=== PATIENT | male | born 1985 | race Caucasian/White ===

== ENCOUNTER 2017-09-10 07:54 | Inpatient (IN) | payer MEDICAID, OTHER ==
[~2017-09-10] VITALS: Ht 180.3 cm; Wt 83.0 kg
[~2017-09-10 07:54] MED LIST: NO HOME MEDS
[2017-09-10] MEDS ORDERED: normal saline 1000ML IV soln IVB ONE (08:30)
[2017-09-10] MEDS ORDERED: normal saline 1000ML IV soln IV ONE (08:40)
[2017-09-10 09:05] LABS: BASOPHILS # (AUTO) 0.1 X10'3 (0-0.2); BASOPHILS % (AUTO) 0.6 % (0-1); EOSINOPHILS # (AUTO) 0.2 X10'3 (0-0.9); EOSINOPHILS % (AUTO) 2.3 % (0-6); HEMATOCRIT 41.1 % (42.0-52.0); HEMOGLOBIN 13.7 g/dl (14.0-17.9); LYMPHOCYTES # (AUTO) 1.9 X10'3 (1.1-4.8); LYMPHOCYTES % (AUTO) 19.1 % (21-51); MEAN CORPUSCULAR HEMOGLOBIN 25.9 PG (27.0-31.0); MEAN CORPUSCULAR HGB CONC 33.4 % (33.0-36.5); MEAN CORPUSCULAR VOLUME 77.4 FL (78-98); MEAN PLATELET VOLUME 7.1 FL (7.4-10.4); MONOCYTES # (AUTO) 0.6 X10'3 (0-0.9); MONOCYTES % (AUTO) 5.7 % (2-12); NEUTROPHILS # (AUTO) 7.1 X10'3 (1.8-7.7); NEUTROPHILS % (AUTO) 72.3 % (42-75); PLATELET COUNT 468 X10'3 (140-440); RED BLOOD COUNT 5.31 X10'6 (4.70-6.10); RED CELL DISTRIBUTION WIDTH 15.8 % (11.5-14.5); WHITE BLOOD COUNT 9.9 X10'3 (4.5-11.0)
[2017-09-10 09:19] LABS: ALANINE AMINOTRANSFERASE 64 U/L (12-78); ALBUMIN 3.5 G/DL (3.4-5.0); ALBUMIN/GLOBULIN RATIO 0.8 (1.1-1.5); ALKALINE PHOSPHATASE 79 IU/L (46-116); ANION GAP 8 (8-16); ASPARTATE AMINO TRANSFERASE 42 U/L (10-37); BILIRUBIN,TOTAL 0.5 MG/DL (0.1-1.0); BLOOD UREA NITROGEN 8 MG/DL (7-18); BUN/CREATININE RATIO 10.7 (5.4-32.0); CALCIUM 9.1 MG/DL (8.5-10.1); CHLORIDE 102 MMOL/L (99-107); CREATININE 0.75 MG/DL (0.60-1.10); GLUCOSE 93 MG/DL (70-104); POTASSIUM 4.2 MMOL/L (3.5-5.1); SODIUM 140 MMOL/L (135-145); TOTAL CARBON DIOXIDE 29.8 MMOL/L (24-32); TOTAL PROTEIN 7.7 G/DL (6.4-8.2); eGFR > 90 ML/MIN
[2017-09-10] MEDS ORDERED: CefTRIAXone 2gm/D5W 50ml 50 ML IV ONE (09:45)
[2017-09-10] MEDS ORDERED: vancomycin/NS 1 GM ADD-VANTAGE 250 ML IV ONE (09:45)
[2017-09-10] MEDS ORDERED: TETanus/Pertussis (Acell)/Diphther VAC/PF (Tdap-Adult) 0.5ml syringe IM ONE (11:15)
[2017-09-10] MEDS ORDERED: metoclopramide 5 mg/ml inj IV PRN (12:05)
[2017-09-10] MEDS ORDERED: morphine 4 MG/ML inj SYRINge IV PRN ×2 (12:05)
[2017-09-10] MEDS ORDERED: HYDROcodone/acetaminophen 10/325mg tab PO PRN (12:05)
[2017-09-10] MEDS ORDERED: mag hydrox/Alum hydrox/simeth 30ml oral suspension PO PRN (12:05)
[2017-09-10] MEDS ORDERED: acetaminophen 325mg tablet PO PRN ×2 (12:05)
[2017-09-10] MEDS ORDERED: pantoprazole 40 MG vial IV SCH (12:05)
[2017-09-10] MEDS ORDERED: ondansetron/PF 4mg/2ml inj IV PRN (12:05)
[2017-09-10] MEDS ORDERED: diphenhydrAMINE 50 mg/ml inj IV PRN (12:05)
[2017-09-10] MEDS ORDERED: HYDROmorphone inj. 0.5 MG/0.5 ML DISP.SYRIN IV PRN ×2 (12:05)
[2017-09-10] MEDS ORDERED: diphenhydrAMINE 25mg capsule PO PRN (12:05)
[2017-09-10] MEDS ORDERED: magnesium hydroxide 30ml (MOM) UD suspension PO PRN (12:05)
[2017-09-10] MEDS ORDERED: HYDROcodone/acetaminophen 5mg/325mg tablet PO PRN (12:05)
[2017-09-10 12:32] LABS: PARTIAL THROMBOPLASTIN TIME 33 SECONDS (22-32); PROTHROMBIN TIME 10.2 SECONDS (9.0-12.0)
[2017-09-10 13:01] LABS: MAGNESIUM 2.1 MG/DL (1.5-2.4)
[2017-09-10] MEDS: normal saline 1000ml 1,000 ML IV SCH (13:47)
[2017-09-10 16:46] LABS: CLARITY,URINE CLEAR (Clear); COLOR,URINE YELLOW (Yellow); GLUCOSE, URINE NEGATIVE (Neg); KETONES,URINE NEGATIVE (Neg); LEUKOCYTE ESTERASE ,URINE NEGATIVE (Neg); NITRITES, URINE NEGATIVE (Neg); OCCULT BLOOD,URINE NEGATIVE (Neg); PROTEIN,URINE NEGATIVE (Neg); UROBILINOGEN,URINE 0.2 E.U/dL (0.2-1.0)
[2017-09-10 16:47] LABS: UA COLLECTION TYPE CLN CATCH MIDSTREAM
[2017-09-10 16:53] LABS: URINE AMPHETAMINE SCREEN POSITIVE (Neg); URINE BARBITUATE SCREEN NEGATIVE (Neg); URINE BENZODIAZEPINES SCREEN NEGATIVE (Neg); URINE CANNABINOID SCREEN POSITIVE (Neg); URINE COCAINE SCREEN NEGATIVE (Neg); URINE METHADONE SCREEN NEGATIVE (Neg); URINE OPIATE SCREEN POSITIVE (Neg); URINE PHENCYCLIDINE SCREEN NEGATIVE (Neg)
[2017-09-10] MEDS: vancomycin inj 1,250 MG in normal saline 250ml IV soln 250 ML IV SCH (19:38)
[2017-09-10] MEDS: lactobacillus rhamnosus 10,000 MMU CELLS/CAPSULE PO SCH (19:39)
[2017-09-10 20:00] VITALS: BP 128/78
[2017-09-10] MEDS: docusate sod 100mg capsule PO SCH (20:00)
[2017-09-10] MEDS ORDERED: temazepam 15mg capsule PO PRN (21:00)
[2017-09-10] MEDS: piperacillin/tazo 4.5gm/100ml 100 ML IV SCH (22:32)
[2017-09-11] VITALS: BP 104/54
[2017-09-11] MEDS: normal saline 1000ml 1,000 ML IV SCH ×3 (00:43→17:53)
[2017-09-11] MEDS: vancomycin inj 1,250 MG in normal saline 250ml IV soln 250 ML IV SCH ×2 (02:56→11:10)
[2017-09-11 05:35] LABS: BASOPHILS # (AUTO) 0.1 X10'3 (0-0.2); EOSINOPHILS # (AUTO) 0.4 X10'3 (0-0.9); EOSINOPHILS % (AUTO) 5.3 % (0-6); HEMOGLOBIN 12.2 g/dl (14.0-17.9); LYMPHOCYTES # (AUTO) 2.8 X10'3 (1.1-4.8); LYMPHOCYTES % (AUTO) 33.5 % (21-51); MEAN CORPUSCULAR HEMOGLOBIN 25.6 PG (27.0-31.0); MEAN CORPUSCULAR VOLUME 77.6 FL (78-98); MEAN PLATELET VOLUME 7.6 FL (7.4-10.4); MONOCYTES # (AUTO) 0.6 X10'3 (0-0.9); MONOCYTES % (AUTO) 7.1 % (2-12); NEUTROPHILS # (AUTO) 4.4 X10'3 (1.8-7.7); NEUTROPHILS % (AUTO) 53.1 % (42-75); PLATELET COUNT 397 X10'3 (140-440); RED BLOOD COUNT 4.77 X10'6 (4.70-6.10); RED CELL DISTRIBUTION WIDTH 15.6 % (11.5-14.5); WHITE BLOOD COUNT 8.3 X10'3 (4.5-11.0)
[2017-09-11 05:41] LABS: ALANINE AMINOTRANSFERASE 49 U/L (12-78); ALBUMIN 2.7 G/DL (3.4-5.0); ALBUMIN/GLOBULIN RATIO 0.8 (1.1-1.5); ALKALINE PHOSPHATASE 65 IU/L (46-116); ANION GAP 8 (8-16); ASPARTATE AMINO TRANSFERASE 27 U/L (10-37); BILIRUBIN,TOTAL 0.3 MG/DL (0.1-1.0); BLOOD UREA NITROGEN 7 MG/DL (7-18); BUN/CREATININE RATIO 10.3 (5.4-32.0); CALCIUM 8.6 MG/DL (8.5-10.1); CHLORIDE 108 MMOL/L (99-107); CREATININE 0.68 MG/DL (0.60-1.10); GLUCOSE 99 MG/DL (70-104); SODIUM 144 MMOL/L (135-145); TOTAL CARBON DIOXIDE 27.6 MMOL/L (24-32); TOTAL PROTEIN 6.3 G/DL (6.4-8.2); eGFR > 90 ML/MIN
[2017-09-11 07:00] VITALS: BP 116/73
[2017-09-11] MEDS ORDERED: vancomycin/NS 1 GM ADD-VANTAGE 250 ML IV SCH (08:00)
[2017-09-11] MEDS: pantoprazole 40mg Tablet.DR PO SCH (08:04)
[2017-09-11] MEDS: piperacillin/tazo 4.5gm/100ml 100 ML IV SCH (08:04)
[2017-09-11] MEDS: docusate sod 100mg capsule PO SCH ×2 (08:04→20:00)
[2017-09-11] MEDS: lactobacillus rhamnosus 10,000 MMU CELLS/CAPSULE PO SCH ×2 (08:04→20:59)
[2017-09-11 11:33] VITALS: BP 121/62
[2017-09-11 12:18] VITALS: BP 122/74
[2017-09-11] MEDS: ibuprofen tablet 400 MG TABLET PO SCH (18:00)
[2017-09-11] MEDS ORDERED: VANCOMYCIN LEVEL IV NR (18:30)
[2017-09-11 20:00] VITALS: BP 125/63
[2017-09-11] MEDS: heparin, porcine 5000 units/ml vial SQ SCH (20:00)
[2017-09-11] MEDS: clindamycin 600mg/D5W 50ml 50 ML IV SCH (21:00)
[2017-09-11] MEDS: levoFLOXACIN-Levaquin 500mg/D5 100 ML IV SCH (21:54)
[2017-09-12] VITALS: BP 124/72
[2017-09-12] MEDS: clindamycin 600mg/D5W 50ml 50 ML IV SCH ×2 (01:44→07:43)
[2017-09-12 05:35] LABS: ALANINE AMINOTRANSFERASE 44 U/L (12-78); ALBUMIN 2.7 G/DL (3.4-5.0); ALBUMIN/GLOBULIN RATIO 0.8 (1.1-1.5); ALKALINE PHOSPHATASE 61 IU/L (46-116); ANION GAP 8 (8-16); ASPARTATE AMINO TRANSFERASE 24 U/L (10-37); BILIRUBIN,TOTAL 0.3 MG/DL (0.1-1.0); BLOOD UREA NITROGEN 8 MG/DL (7-18); BUN/CREATININE RATIO 11.6 (5.4-32.0); CALCIUM 8.5 MG/DL (8.5-10.1); CHLORIDE 108 MMOL/L (99-107); CREATININE 0.69 MG/DL (0.60-1.10); GLUCOSE 95 MG/DL (70-104); POTASSIUM 3.9 MMOL/L (3.5-5.1); SODIUM 145 MMOL/L (135-145); TOTAL CARBON DIOXIDE 28.8 MMOL/L (24-32); TOTAL PROTEIN 6.3 G/DL (6.4-8.2); eGFR > 90 ML/MIN
[2017-09-12 05:41] LABS: BASOPHILS % (AUTO) 0.8 % (0-1); EOSINOPHILS # (AUTO) 0.4 X10'3 (0-0.9); EOSINOPHILS % (AUTO) 6.5 % (0-6); HEMATOCRIT 37.2 % (42.0-52.0); HEMOGLOBIN 12.3 g/dl (14.0-17.9); LYMPHOCYTES # (AUTO) 2.5 X10'3 (1.1-4.8); LYMPHOCYTES % (AUTO) 46.9 % (21-51); MEAN CORPUSCULAR HEMOGLOBIN 25.6 PG (27.0-31.0); MEAN CORPUSCULAR VOLUME 77.4 FL (78-98); MEAN PLATELET VOLUME 7.5 FL (7.4-10.4); MONOCYTES # (AUTO) 0.4 X10'3 (0-0.9); MONOCYTES % (AUTO) 6.7 % (2-12); NEUTROPHILS # (AUTO) 2.1 X10'3 (1.8-7.7); NEUTROPHILS % (AUTO) 39.1 % (42-75); PLATELET COUNT 391 X10'3 (140-440); RED CELL DISTRIBUTION WIDTH 15.7 % (11.5-14.5); WHITE BLOOD COUNT 5.4 X10'3 (4.5-11.0)
[2017-09-12] MEDS: pantoprazole 40mg Tablet.DR PO SCH (07:38)
[2017-09-12] MEDS: ibuprofen tablet 400 MG TABLET PO SCH (07:38)
[2017-09-12] MEDS: lactobacillus rhamnosus 10,000 MMU CELLS/CAPSULE PO SCH (07:38)
[2017-09-12] MEDS: docusate sod 100mg capsule PO SCH (07:38)
[2017-09-12] MEDS: heparin, porcine 5000 units/ml vial SQ SCH (07:39)
[2017-09-12 08:00] VITALS: BP 114/78
[2017-09-12] MEDS ORDERED: Potassium Cl inj 10 MEQ in normal saline 1000ml 1,000 ML IV SCH (08:00)
[2017-09-12] MEDS: levoFLOXACIN-Levaquin 500mg/D5 100 ML IV SCH (08:34)
[2017-09-12] MEDS ORDERED: METR500T4 PO (10:46)
[2017-09-12] MEDS ORDERED: LEVO500T2 PO (10:46)
[2017-09-12] MEDS ORDERED: FAMO-128 PO (10:46)
[2017-09-12] MEDS ORDERED: IBUP-1984 PO (10:46)
== END 2017-09-12 11:55 | disposition home or self-care (01) | DRG 383 ==
LOC: ER 07:54 → ED HOLD 12:04 → SUR 3N 17:06
PROVIDERS: ADMIT Family Medicine; ATTEND Internal Medicine
DX: L03.115 Cellulitis of right lower limb (principal); F11.90 Opioid use, unspecified, uncomplicated; L02.415 Cutaneous abscess of right lower limb; L30.8 Other specified dermatitis; F19.10 Other psychoactive substance abuse, uncomplicated; Z88.2 Allergy status to sulfonamides; Z79.899 Other long term (current) drug therapy; Z71.51 Drug abuse counseling and surveillance of drug abuser
CPT/HCPCS: 36415; 73700; 80053; 80202; 80305; 81003; 83605; 83735; 83880; 85025; 85610; 85651; 85730; 87040; 87070; 90715; 96365; 99285; A6255; C9113; J0696; J1644; J1956; J2543; J3370; J3480; J3490; J7030

== ENCOUNTER 2020-04-26 20:43 | Emergency (ER) | payer MEDICAID, OTHER ==
[~2020-04-26] VITALS: Ht 180.3 cm; Wt 99.0 kg
[~2020-04-26 20:43] MED LIST changes: +FAMO-128 PO; +IBUP-1984 PO; -NO HOME MEDS
[2020-04-26 20:48] VITALS: BP 163/112
[2020-04-26] MEDS ORDERED: ampicillin/sulbac 3gm/NS 100ml 100 ML IV ONE (21:25)
[2020-04-26] MEDS ORDERED: LIDOcaine 1% w/epiNEPHrine 1:200,000 30ml vial IJ ONE (21:45)
[2020-04-26] MEDS ORDERED: ondansetron 4mg rapidly disintigrating tab PO ONE (21:55)
[2020-04-26] MEDS ORDERED: tetanus & diphtheria toxoid (Td) vaccine 0.5ml IMVAC ONE (22:35)
[2020-04-26] MEDS ORDERED: AMOX-422 PO (22:39)
[2020-04-26] MEDS ORDERED: TETanus/Pertussis (Acell)/Diphther VAC/PF (Tdap-Adult) 0.5ml syringe IMVAC ONE (22:40)
[2020-04-27] MEDS ORDERED: ampicillin/sulbac 3gm/NS 100ml 100 ML IV SCH (02:00)
== END 2020-04-26 23:14 | disposition home or self-care (01) ==
LOC: ER 20:44
DX: S01.511A Laceration without foreign body of lip, initial encounter (principal); F12.90 Cannabis use, unspecified, uncomplicated; Z72.89 Other problems related to lifestyle; Z88.0 Allergy status to penicillin; Z79.2 Long term (current) use of antibiotics; Z79.899 Other long term (current) drug therapy; W54.0XXA Bitten by dog, initial encounter; Y93.89 Activity, other specified; Y92.89 Other specified places as the place of occurrence of the external cause; Y99.8 Other external cause status
CPT/HCPCS: 12014; 90471; 90715; 96365; 99284; J0295

== ENCOUNTER 2021-09-08 18:17 | Emergency (ER) | payer MEDICAID ==
[~2021-09-08] VITALS: Ht 180.3 cm; Wt 90.9 kg
[~2021-09-08 18:17] MED LIST changes: +gentamicin inj 80 MG in normal saline 100ml IV soln 98 ML IV ONE
[2021-09-08] MEDS ORDERED: HYDROcodone/acetaminophen 10/325mg tab PO ONE (19:50)
[2021-09-08] MEDS ORDERED: bacitracin 15gm ointment TP ONE (19:50)
[2021-09-08] MEDS ORDERED: LIDOcaine 1% 30ml preserv. free vial IJ ONE (19:50)
[2021-09-08] MEDS ORDERED: gentamicin in saline, iso-osm 80 MG/50 ML premix IV ONE ×2 (19:50→20:15)
[2021-09-08] MEDS ORDERED: TETanus/Pertussis (Acell)/Diphther VAC/PF (Tdap-Adult) 0.5ml syringe IMVAC ONE (19:50)
[2021-09-08] MEDS ORDERED: ceFAZolin 1000mg inj IV ONE (19:50)
[2021-09-08] MEDS ORDERED: ondansetron 4mg rapidly disintigrating tab PO ONE (19:50)
[2021-09-08] MEDS ORDERED: LIDOcaine 1%/PF 5ML 10 MG/ML VIAL IJ ONE (20:05)
[2021-09-08] MEDS ORDERED: cefazolin/dext.iso 2gm/100ml 100 ML IV ONE (20:10)
[2021-09-08] MEDS ORDERED: cefazolin/dext.iso 2gm/100ml 50 ML IV ONE (20:22)
[2021-09-08] MEDS ORDERED: ceFAZolin 2gm in dextrose, iso 50 ML IV ONE (20:24)
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
[2021-09-08] MEDS ORDERED: AMOX-580 PO (21:35)
[2021-09-08] MEDS ORDERED: HYDR-3972 PO (21:35)
[2021-09-08] MEDS ORDERED: ONDA4TAB12 PO (21:35)
[2021-09-08] MEDS ORDERED: CLIN150C2 PO (21:37)
[2021-09-08 22:03] VITALS: BP 142/86
== END 2021-09-08 22:32 | disposition home or self-care (01) ==
LOC: ER 18:18
DX: S62.393B Other fracture of third metacarpal bone, left hand, initial encounter for open fracture (principal); S62.395B Other fracture of fourth metacarpal bone, left hand, initial encounter for open fracture; F12.10 Cannabis abuse, uncomplicated; Z88.2 Allergy status to sulfonamides; Z79.899 Other long term (current) drug therapy; W54.0XXA Bitten by dog, initial encounter; Y93.89 Activity, other specified; Y92.89 Other specified places as the place of occurrence of the external cause; Y99.8 Other external cause status
CPT/HCPCS: 29125; 73130; 96365; 96367; 99284; J0690; J1580; J3490; 12002

== ENCOUNTER 2022-09-02 16:38 | Emergency (ER) | payer OTHER, MEDICAID ==
[~2022-09-02] VITALS: Ht 180.3 cm; Wt 93.0 kg
[~2022-09-02 16:38] MED LIST changes: +ONDA4TAB12 PO; -gentamicin inj 80 MG in normal saline 100ml IV soln 98 ML IV ONE
[2022-09-02 16:43] VITALS: BP 146/107
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
== END 2022-09-02 17:20 | disposition home or self-care (01) ==
LOC: ER 16:38
DX: Z04.1 Encounter for examination and observation following transport accident (principal); F12.90 Cannabis use, unspecified, uncomplicated; Z88.2 Allergy status to sulfonamides; V89.2XXA Person injured in unspecified motor-vehicle accident, traffic, initial encounter; Y93.89 Activity, other specified; Y92.89 Other specified places as the place of occurrence of the external cause; Y99.8 Other external cause status
CPT/HCPCS: 99281

== ENCOUNTER 2022-11-05 05:25 | Emergency (ER) | payer MEDICAID ==
[~2022-11-05] VITALS: Ht 180.3 cm; Wt 88.8 kg
[2022-11-05 05:32] VITALS: BP 150/91
== END 2022-11-05 06:34 | disposition home or self-care (01) ==
LOC: ER 05:26
DX: Z00.00 Encounter for general adult medical examination without abnormal findings (principal); F12.90 Cannabis use, unspecified, uncomplicated; Z88.2 Allergy status to sulfonamides
CPT/HCPCS: 99281

== ENCOUNTER 2024-06-15 10:21 | Emergency (ER) | payer MEDICAID ==
[~2024-06-15] VITALS: Ht 177.8 cm; Wt 89.5 kg
[~2024-06-15 10:21] MED LIST changes: +ONDA-243 PO; -ONDA4TAB12 PO
[2024-06-15 10:57] VITALS: BP 126/68; PULSE 98; RESP 16; TEMP 98.2; O2SAT 99
== END 2024-06-15 10:58 | disposition home or self-care (01) ==
LOC: ER 10:22
DX: F11.20 Opioid dependence, uncomplicated (principal); F12.90 Cannabis use, unspecified, uncomplicated; Z88.2 Allergy status to sulfonamides; Z79.899 Other long term (current) drug therapy
CPT/HCPCS: 99281

== ENCOUNTER 2024-09-18 16:56 | Emergency (ER) | payer MEDICAID ==
[~2024-09-18] VITALS: Ht 180.3 cm; Wt 97.7 kg
[2024-09-18 18:02] LABS: BASOPHILS % (AUTO) 0.4 % (0-1); EOSINOPHILS # (AUTO) 0.3 X10'3 (0-0.9); EOSINOPHILS % (AUTO) 5.9 % (0-6); HEMATOCRIT 37.4 % (42.0-52.0); HEMOGLOBIN 12.3 g/dl (14.0-17.9); LYMPHOCYTES # (AUTO) 2.2 X10'3 (1.1-4.8); LYMPHOCYTES % (AUTO) 38.1 % (21-51); MEAN CORPUSCULAR HEMOGLOBIN 28.1 PG (27.0-31.0); MEAN CORPUSCULAR HGB CONC 32.9 g/dL (33.0-36.5); MEAN CORPUSCULAR VOLUME 85.7 FL (78-98); MEAN PLATELET VOLUME 6.7 FL (7.4-10.4); MONOCYTES # (AUTO) 0.3 X10'3 (0-0.9); MONOCYTES % (AUTO) 4.6 % (2-12); NEUTROPHILS # (AUTO) 2.9 X10'3 (1.8-7.7); PLATELET COUNT 399 X10'3 (140-440); RED BLOOD COUNT 4.36 X10'6 (4.70-6.10); RED CELL DISTRIBUTION WIDTH 18.6 % (11.5-14.5); WHITE BLOOD COUNT 5.7 X10'3 (4.5-11.0)
[2024-09-18 18:14] LABS: ALANINE AMINOTRANSFERASE 29 U/L (12-78); ALBUMIN 3.6 G/DL (3.4-5.0); ALKALINE PHOSPHATASE 84 IU/L (46-116); ANION GAP 4 (8-16); ASPARTATE AMINO TRANSFERASE 15 U/L (10-37); BILIRUBIN,TOTAL 0.5 MG/DL (0.1-1.0); BLOOD UREA NITROGEN 14 MG/DL (7-18); BUN/CREATININE RATIO 17.9 (10.0-20.0); CALCIUM 8.6 MG/DL (8.5-10.1); CHLORIDE 106 MMOL/L (99-107); CREATININE 0.78 MG/DL (0.60-1.10); GLUCOSE 86 MG/DL (70-104); LIPASE 21 U/L (16-77); POTASSIUM 4.3 MMOL/L (3.5-5.1); SODIUM 141 MMOL/L (135-145); TOTAL CARBON DIOXIDE 30.8 MMOL/L (24-32); TOTAL PROTEIN 7.1 G/DL (6.4-8.2); eCRCL 133 ML/MIN; eGFR > 90 ML/MIN
[2024-09-18 18:42] LABS: ANISOCYTOSIS 2+; PLATELET ESTIMATE NORMAL
[2024-09-18 19:50] LABS: BILIRUBIN,URINE NEGATIVE (Neg); CLARITY,URINE CLEAR (Clear); COLOR,URINE YELLOW (Yellow); GLUCOSE, URINE NEGATIVE (Neg); KETONES,URINE TRACE mg/dl (Neg); LEUKOCYTE ESTERASE ,URINE NEGATIVE (Neg); NITRITES, URINE NEGATIVE (Neg); OCCULT BLOOD,URINE NEGATIVE (Neg); PROTEIN,URINE NEGATIVE (Neg); UA COLLECTION TYPE URINAL; UROBILINOGEN,URINE 0.2 E.U/dL (0.2-1.0)
--- NOTE | 2024-09-18 21:22 | Physician Documentation ---
History of Present Illness Chief Complaint: Abdominal Pain Stated Complaint: ABDOMINAL PAIN Time Seen by MD: 21:20 OK to notify your PCP?: Yes Primary Medical Doctor: none Source: patient, RN/MD, RN notes reviewed, old records Mode of Arrival: POV Exam Limitations: no limitations HPI 39 year old male, currently undergoing treatment for hepatitis C, presents complaining of diffuse abdominal pain, worse in the left upper abdomen for the last three days. Patient reports that yesterday he ate an entire pizza and afterwards had pain throughout the night. Currently he denies any abdominal pain. He sometimes has some constipation and abdominal bloating, which he believes may be due to his hepatitis medication. He denies any diarrhea, nausea, vomiting, or fever. He is currently in a substance abuse treatment program. Medication Reconciliation Allergies: Coded Allergies: Sulfa (Sulfonamide Antibiotics) (Unverified Allergy, Unknown, 09/18/24) Scheduled Famotidine (Pepcid), 1 TAB PO DAILY Scheduled PRN Ibuprofen* (Motrin*), 800 MG PO TID@0830,1230,1730 PRN for pain ONDANSETRON ODT 4mg tablet (Ondansetron Odt), 1 TABLET PO Q6H PRN for nausea/vomiting Past Medical History Past Medical History: Hepatitis C Past Surgical History: no surgical history Patient History: FH: stomach cancer GRANDFATHER OR GRANDMOTHER FH: throat cancer GRANDFATHER OR GRANDMOTHER, Alcohol Use: Sober Drug Use: marijuana Lives with: Spouse Lives In: Home Occupation: employed Review of Systems All Other Systems at this time: Reviewed and Negative ROS As stated above in the HPI, otherwise all systems are reviewed and negative. Physical Exam Vital Signs: RN Vital Signs have been reviewed: Yes, Temperature: 96.8, Source: Oral, Heart Rate: 70, Respiratory Rate: 16, BP: 146/85, Pulse Oximetry: 100, Weight: 97.730 Oxygen Flow Rate: 0 Pulse Oximetry Reflects: adequate oxygenation Physical Exam General: The patient is well developed, well nourished, nontoxic appearing and is in no acute distress. Skin: [place], warm and dry with no rashes. HEENT: Head was normocephalic and atraumatic. Chest: Clear to auscultation bilaterally without wheezes, rales or rhonchi. No accessory muscle use. No dullness to percussion. Heart: Rate regular and rhythmic. S1, S2. No murmurs. Palpation of the chest wall was normal. No rubs or thrills. Abdomen: Soft, nontender and nondistended. Positive bowel sounds. No guarding or rebound. Extremities: No cyanosis, clubbing or edema. The patient moves all extremities. Pulses were equal and symmetric. Neurologic: Motor and sensation grossly intact. Cranial nerves II-XII grossly intact. A & O x4. Psychologic: Normal mood and affect. No agitation. Progress Progress Note 1040: Patient wishes to be discharged and follow up with a surgeon as an outpatient. Results/Orders Reviewed/noted all lab results: Yes Results/Orders Vital Signs 09/18/24 09/18/24 09/18/24 16:58 19:34 19:38 Temp 96.8 96.8 Pulse 77 70 Resp 16 16 16 B/P (MAP) 162/93 146/85 (105) Pulse Ox 99 100 O2 Flow Rate 0 Laboratory Tests Test 09/18/24 17:36 09/18/24 17:40 White Blood Count 5.7 Red Blood Count 4.36 L Hemoglobin 12.3 L Hematocrit 37.4 L Mean Corpuscular Volume 85.7 Mean Corpuscular Hemoglobin 28.1 Mean Corpuscular Hemoglobin Concent 32.9 L Red Cell Distribution Width 18.6 H Platelet Count 399 Mean Platelet Volume 6.7 L Neutrophils (%) (Auto) 51.0 Lymphocytes (%) (Auto) 38.1 Monocytes (%) (Auto) 4.6 Eosinophils (%) (Auto) 5.9 Basophils (%) (Auto) 0.4 Neutrophils # (Auto) 2.9 Lymphocytes # (Auto) 2.2 Monocytes # (Auto) 0.3 Eosinophils # (Auto) 0.3 Basophils # (Auto) 0.0 CBC Comment Platelet Estimate Normal Red Blood Cell Morphology Perf Basophilic Stippling Anisocytosis 2+ Sodium Level 141 Potassium Level 4.3 Chloride Level 106 Carbon Dioxide Level 30.8 Anion Gap 4 L Blood Urea Nitrogen 14 Creatinine 0.78 Estimated GFR/1.73 m2 > 90 BUN/Creatinine Ratio 17.9 Glucose Level 86 Calcium Level 8.6 Total Bilirubin 0.5 Aspartate Amino Transf (AST/SGOT) 15 Alanine Aminotransferase (ALT/SGPT) 29 Alkaline Phosphatase 84 Total Protein 7.1 Albumin 3.6 Globulin 3.5 Albumin/Globulin Ratio 1.0 L Lipase 21 Chemistry Comments Urine Specimen Description Urinal Urine Color Yellow Urine Clarity Clear Urine pH 6.0 Urine Specific [place] 1.025 Urine Protein Negative Urine Glucose (UA) Negative Urine Ketones Trace H Urine Occult Blood Negative Urine Nitrite Negative Urine Bilirubin Negative Urine Urobilinogen 0.2 Urine Leukocyte Esterase Negative Urine Culture Indicated Not ind Volume Urine Centrifuged 10 ml Urine Comment EKG/XRAY/CT/US/VASC/MRI Ultrasound : Interpreted By: radiologist Ultrasound of: abdomen Impression INDICATION: pain postprandial TECHNIQUE: Multiple real-time sonographic images were obtained of the right upper quadrant. COMPARISON: None FINDINGS: Liver measures approximately 17.2 cm and demonstrates normal echogenicity with no lesions identified. No evidence of intrahepatic or extrahepatic ductal dilatation with the common bile duct measuring 4 mm. There are multiple gallstones in the gallbladder. Gallbladder wall is thickened measuring 6 mm. Sonographic Hackett's sign was reportedly positive. Right kidney measures 9.6 cm and appears unremarkable. No hydronephrosis. Pancreas is obscured by overlying bowel gas. IMPRESSION: Cholelithiasis and evidence of acute cholecystitis. Reviewed by id, Dr. Sarabia. Medical Decision Making Additional info obtained from: old records (Admitted in 2018 for staph infection) Departure Time of Disposition: 22:42 Disposition: 01 HOME / SELF CARE / HOMELESS Impression: Primary Impression: Cholelithiasis Qualified Codes: K80.80 - Other cholelithiasis without obstruction Condition: Stable Discharge Instructions: Cholelithiasis, [id number], Gallbladder Eating Plan Additional Instructions: Follow up with Dr. Mercado, surgeon. His offices number is listed in this packet. You may need a referral from your primary care doctor. Avoid fatty foods. May take ibuprofen for pain. Return to the ER for worsening abdominal pain, fever, vomiting, or any other concerns. Referrals: KAREN MERCADO MD Education Educated: Patient Educated regarding: diagnosis, treatment, need for follow up Signature Scribe Signature: Scribed for Ketty Sarabia MD by Arleth Meyers . 09/18/24 21:48 KETTY SARABIA MD September 18, 2024 21:22 ARLETH QUIÑONES September 18, 2024 21:49
--- NOTE | 2024-09-18 22:41 | RADIOLOGY REPORT ---
INDICATION: pain postprandial TECHNIQUE: Multiple real-time sonographic images were obtained of the right upper quadrant. COMPARISON: None FINDINGS: Liver measures approximately 17.2 cm and demonstrates normal echogenicity with no lesions identified. No evidence of intrahepatic or extrahepatic ductal dilatation with the common bile duct measuring 4 m m. There are multiple gallstones in the gallbladder. Gallbladder wall is thickened measuring 6 mm. Sonog raphic Hackett's sign was reportedly positive. Right kidney measures 9.6 cm and appears unremarkable. No hydronephrosis. Pancreas is obscured by overlying bowel gas. IMPRESSION: Cholelithiasis and evidence of acute cholecystitis.
[2024-09-18 22:54] VITALS: BP 130/88; PULSE 78; RESP 16; TEMP 96.6; O2SAT 98
== END 2024-09-18 22:58 | disposition home or self-care (01) ==
LOC: ER 16:56
DX: K80.00 Calculus of gallbladder with acute cholecystitis without obstruction (principal); F12.90 Cannabis use, unspecified, uncomplicated; Z88.2 Allergy status to sulfonamides; Z79.899 Other long term (current) drug therapy
CPT/HCPCS: 36415; 76700; 80053; 81003; 83690; 85008; 85025; 99284

== ENCOUNTER 2024-10-25 20:20 | Inpatient (IN) | payer MEDICAID ==
[~2024-10-25] VITALS: Ht 177.8 cm; Wt 101.3 kg
--- NOTE | 2024-10-25 21:20 | Physician Documentation ---
History of Present Illness Chief Complaint: Abdominal Pain Stated Complaint: ABDOMINAL PAIN OK to notify your PCP?: Yes Primary Medical Doctor: none Source: patient Mode of Arrival: POV Exam Limitations: no limitations HPI 39-year-old male presents with diffuse abdominal pain worse on the right upper quadrant for the past 3 weeks. He states he was seen here recently and diagnosed with gallstones for which he needs to have his gallbladder removed on an outpatient basis. He has been experiencing 1 episode of vomiting which was a couple of weeks ago and couple episodes of diarrhea. Additional note by Willy Prasad DO: I took over the care of this patient from previous physician. I reviewed any previous notes available, obtain my own history, review of systems and physical examination was performed by myself. This is a 39-year-old gentleman who tells me that he is here for evaluation of right upper quadrant abdominal pain that is on and off for the last month since he was diagnosed with gallstones. He had seen Dr. Williamson in the office on and was told to come to the hospital on Saturday for an admission. No particular palliating factors for the pain. Aggravated by eating. Similar to prior biliary colic. Denies any fever or chills. Incidentally reports that he is currently being treated for hepatitis C. he started treatment of hepatitis-C at the same time as he was diagnosed with biliary colic and gallstones. He reports that since then he had developed progressive worsening bilateral lower extremity numbness, now involving his bilateral upper extremities. It makes it difficult to ambulate for him. No palliating or aggravating factors for peripheral neuropathy describes the elic ited with the patient. Denies any viral gastroenteritis with a viral URI infectious preceding onset of numbness. Medication Reconciliation Allergies: Coded Allergies: Sulfa (Sulfonamide Antibiotics) (Unverified Allergy, Unknown, 09/18/24) Scheduled Famotidine (Pepcid), 1 TAB PO DAILY Scheduled PRN Ibuprofen* (Motrin*), 800 MG PO TID@0830,1230,1730 PRN for pain ONDANSETRON ODT 4mg tablet (Ondansetron Odt), 1 TABLET PO Q6H PRN for nausea/vomiting Past Medical History Past Medical History: Hepatitis C Past Surgical History: no surgical history Patient History: FH: stomach cancer GRANDFATHER OR GRANDMOTHER FH: throat cancer GRANDFATHER OR GRANDMOTHER, Alcohol Use: Sober Drug Use: marijuana Lives with: Spouse Lives In: Home Occupation: employed Review of Systems All Other Systems at this time: Reviewed and Negative ROS 10 point review of systems was performed and unless noted above in HPI is negative for acute process/complaint. Physical Exam Vital Signs: RN Vital Signs have been reviewed: Yes, Temperature: 97.6, Source: Oral, Heart Rate: 70, Respiratory Rate: 16, BP: 129/78, Pulse Oximetry: 98, Weight: 101.350 Oxygen Flow Rate: 0 Pulse Oximetry Reflects: adequate oxygenation Physical Exam General: Alert, no distress. HEENT: No injection, moist mucous membranes. Neck: Full range of motion. Respiratory: No respiratory distress, equal chest rise and fall. Chest: No accessory muscle use. Cardiovascular: Regular rate and rhythm. Gastrointestinal: Nondistended, soft. Tender to palpation of right upper quadrant, normal bowel sounds. Extremities: Normal range of motion, no deformity. Neurologic: Oriented x4. Psychiatric: Normal mood and affect. Skin: Normal color, warm and dry. Progress Results/Orders Results/Orders Vital Signs 10/25/24 20:22 Temp 97.6 Pulse 70 Resp 16 B/P (MAP) 129/78 Pulse Ox 98 O2 Flow Rate 0 Medical Decision Making Findings Facility Status: ED [facility], [facility] process The plan was discussed with the patient, who demonstrates clear understanding of the plan and is in agreement with the plan unless otherwise noted in the chart. All questions have been answered, all concerns were addressed unless otherwise documented. I was available throughout their ED stay for frequent reassessment and questions. Differential Diagnoses (considered and possible or likely): [Differential diagnosis considered includes acute appendicitis, acute cholecystitis, pancreatitis, gastritis, PUD, diverticulitis, mesenteric ischemia, abdominal aortic aneurysm, bowel obstruction, enteritis, colitis, fecal impaction, volvulus, IBS, inflammatory bowel disease, specific food intolerance, peritonitis, perforated viscous, malignancy, UTI, abscess, and abdominal pain NOS. History, physical exam, and workup exclude many of the more serious causes listed above. With respect to peripheral neuropathy differential includes but not limited to Guillain-[place], hypovitaminosis, medication side effect] ??Differential Diagnoses (considered and unlikely, not requiring evaluation curr ently): [See above] MDM Data Please see HPI for the following: Independent Historians and external Records Review. Historian: [Patient] Independent Historians: ?[None] Medication Management: [Reviewed medication list] Social History and determinants: [Reviewed] Please see the body of the note for the following: Any independent interpretations of ECG, imaging studies. All vitals signs/haemodynamics, ordered tests were independently reviewed and i nterpreted by myself. Nursing triage complaint and vitals reviewed, additional nursing notes were reviewed as available and I agree unless otherwise noted or documented in contradiction in the chart Vital Signs: Independently reviewed Labs: Independently interpreted Imaging: Independently interpreted Old Medical Records: Independently reviewed, see HPI for relevant summary and information Pulse Oximetry: [98%] interpreted as [normal on room air] by me [Leasing Property Manager: [Regular Rate, Regular rhythm, no ectopy, NSR] reviewed and interpreted by me] Additionally notably showing: [Hemodynamically stable. Unremarkable laboratory workup with normal CBC and CMP.] Tests considered but not ordered include: [Imaging does not appear to be necessary] Social Determinants of Health Impact: Patient was evaluated in [facility], [facility] [place] to healthcare due to below par ratio of patient to medical providers. [] Comorbid Conditions Impacting Present Evaluation and Care/Treatment: Known gallstone disease] Management Discussions with other Healthcare Providers: [Hospitalist regarding admission I] Treatment and Disposition Medication Management (Given or considered): [Pain management]. See EMR for details Consideration for Hospitalization/Escalation/Deescalation of Care: Admission for observation has been considered, and is necessary for further management of his gallbladder disease Peripheral neuropathy currently worked up in the outpatient basis given duration of symptoms. Highly unlikely to represent Rivero Tellez variant of Guillain- [place] that may potentially in danger his life. ?ED Course:?[No clinical deterioration] ?Shared decision making:?[] Code status:?FULL Please see the full Electronic Medical Record for full details of nursing documentation, medications list, other records of complete past medical history and conditions, vital signs, laboratory studies, and any radiologic study interpretations by radiologists. Portions of this note were completed using [employer] dictation software and as a result there may exist minor errors in spelling. I have reviewed elements of past family and social history and agree as included in note. Departure Disposition: ADMITTED INPATIENT Admitted to Inpatient Unit: to hospitalist Impression: Primary Impression: Biliary colic Additional Impression: Peripheral neuropathy Condition: Stable Referrals: NO PRIMARY CARE PROVIDER (PCP) Additional Comment Medical Screen Exam This patient recieved a medical screening examination. After reviewing the individual's medical complaints with presenting symptoms and performing an appropriate physical examination, it was determined that no immediate life-thre atening emergency medical condition is present. This individual is also not a women having contractions. Signature Scribe Signature: No scribe Attestation: This note accurately reflects clinical decisions, work performed by myself, DO YOUNG Diaz ASHLEY D [facility] Oct 25, 2024 21:20 WILLY PRASAD DO Oct 26, 2024 03:00
[2024-10-25 21:28] LABS: BASOPHILS % (AUTO) 0.6 % (0-1); EOSINOPHILS # (AUTO) 0.4 X10'3 (0-0.9); EOSINOPHILS % (AUTO) 5.6 % (0-6); HEMATOCRIT 38.7 % (42.0-52.0); HEMOGLOBIN 12.7 g/dl (14.0-17.9); LYMPHOCYTES # (AUTO) 3.1 X10'3 (1.1-4.8); LYMPHOCYTES % (AUTO) 47.3 % (21-51); MEAN CORPUSCULAR HEMOGLOBIN 29.1 PG (27.0-31.0); MEAN CORPUSCULAR HGB CONC 32.9 g/dL (33.0-36.5); MEAN CORPUSCULAR VOLUME 88.5 FL (78-98); MEAN PLATELET VOLUME 7.4 FL (7.4-10.4); MONOCYTES # (AUTO) 0.4 X10'3 (0-0.9); MONOCYTES % (AUTO) 6.5 % (2-12); NEUTROPHILS # (AUTO) 2.6 X10'3 (1.8-7.7); PLATELET COUNT 302 X10'3 (140-440); RED BLOOD COUNT 4.37 X10'6 (4.70-6.10); RED CELL DISTRIBUTION WIDTH 19.1 % (11.5-14.5); WHITE BLOOD COUNT 6.5 X10'3 (4.5-11.0)
[2024-10-25 21:41] LABS: ALANINE AMINOTRANSFERASE 25 U/L (12-78); ALBUMIN 3.7 G/DL (3.4-5.0); ALBUMIN/GLOBULIN RATIO 1.1 (1.1-1.5); ALKALINE PHOSPHATASE 93 IU/L (46-116); ANION GAP 6 (8-16); ASPARTATE AMINO TRANSFERASE 17 U/L (10-37); BILIRUBIN,TOTAL 0.3 MG/DL (0.1-1.0); BLOOD UREA NITROGEN 19 MG/DL (7-18); BUN/CREATININE RATIO 22.6 (10.0-20.0); CALCIUM 8.9 MG/DL (8.5-10.1); CHLORIDE 107 MMOL/L (99-107); CREATININE 0.84 MG/DL (0.60-1.10); GLUCOSE 101 MG/DL (70-104); LIPASE 27 U/L (16-77); POTASSIUM 4.1 MMOL/L (3.5-5.1); SODIUM 144 MMOL/L (135-145); TOTAL CARBON DIOXIDE 31.5 MMOL/L (24-32); TOTAL PROTEIN 7.2 G/DL (6.4-8.2); eCRCL 119 ML/MIN; eGFR > 90 ML/MIN
[2024-10-25 22:17] LABS: ANISOCYTOSIS 2+; PLATELET ESTIMATE NORMAL
[2024-10-26 02:43] LABS: C-REACTIVE PROTEIN 0.11 MG/DL (0.0-0.5)
[2024-10-26] MEDS ORDERED: magnesium sulf-water 4G/100mL 100 ML IV PRN (03:10)
[2024-10-26] MEDS ORDERED: acetaminophen 325mg tablet PO PRN (03:10)
[2024-10-26] MEDS ORDERED: magnesium hydroxide 30ml (MOM) UD suspension PO PRN (03:10)
[2024-10-26] MEDS ORDERED: ondansetron/PF 4mg/2ml inj IV PRN (03:10)
[2024-10-26] MEDS ORDERED: potassium Cl 40MEQ/1/2NS 520ml 520 ML IV PRN (03:10)
[2024-10-26] MEDS ORDERED: morphine 2 MG/ML inj. syringe IV PRN (03:10)
[2024-10-26] MEDS ORDERED: magnesium sulf-water 2g/50mL 50 ML IV PRN (03:10)
[2024-10-26] MEDS ORDERED: mag hydrox/Alum hydrox/simeth 30ml oral suspension PO PRN (03:10)
[2024-10-26] MEDS ORDERED: HYDROmorphone inj. 0.5 MG/0.5 ML DISP.SYRIN IV PRN (03:10)
[2024-10-26] MEDS ORDERED: potassium Cl 20 mEq SR tablet PO PRN ×2 (03:10)
[2024-10-26] MEDS ORDERED: magnesium Cl slow-release 64mg tablet PO PRN (03:10)
[2024-10-26] MEDS ORDERED: HYDROmorphone/PF 0.2 MG/ML SYRINGE IV PRN (03:10)
--- NOTE | 2024-10-26 04:00 | RADIOLOGY REPORT ---
CHEST RADIOGRAPH Indication: sob Technique: Single frontal view of the chest was obtained COMPARISON: None FINDINGS: Lines and Tubes: None Lungs: Clear Pleura: No effusion. No pneumothorax. Cardiomediastinal contours: Unremarkable Bones: Unremarkable IMPRESSION: No acute disease.
[2024-10-26] MEDS: normal saline 1000ml 1,000 ML IV SCH (04:12)
[2024-10-26 04:38] LABS: POTASSIUM 4.5 MMOL/L (3.5-5.1)
--- NOTE | 2024-10-26 04:40 | HISTORY AND PHYSICAL-Residence ---
History & Physical Providers to CC Resident Creating Document: MARITZA RICHARDS RES ~ History of Present Illness Primary Medical Doctor: none Reason for Admit\Complaint: ACUTE CHOLECYSTITIS, PERIPHERAL NEUROPATHY History of Present Illness Presented to the ER with chief complaints of pain abdomen for the past one month, more on the right upper quadrant radiating to lower abdomen. Endorses vomiting for one episode, greenish black stool discoloration. Following up Dr. Mercado [place] outpatient And he recommended for hospitalization on today. Reports numbness of all four limbs for the past two and half week. She was able to walk one month ago but could not able to walk for the past 2-1/2 week. He endorses numbness and tingling sensation, initially started in bilateral hands&latter numbness progressed to bilateral legs. Denied burning sensation of the feet. Complaining of knee goes out - tripping attack for three to 4 times a day for the past couple of days. Endorses generalized weakness for the past two and half weeks. He endorses itching & constipation. Denied slurring of speech, deviation of angle of mouth, seizures, lower backache, cotton-wool sensation, blurring of vision, headache. Allergies: Coded Allergies: Sulfa (Sulfonamide Antibiotics) (Unverified Allergy, Unknown, 09/18/24) Home Medications Home Medications Active Ondansetron Odt (Ondansetron HCl) 4 Mg Tab.rapdis 1 Tablet PO Q6H PRN Pepcid (Famotidine) 20 Mg Tablet 1 Tab PO DAILY 10 Days Motrin* (Ibuprofen) 400 Mg Tablet 800 Mg PO TID@0830,1230,1730 PRN Past Medical History Past Medical History Hepatitis-C on Polysubstance use Fentanyl use Methamphetamine use Marijuana use We are abuse Past Surgical History Surgical History Comment Noncontributory Family History Family History: FH: stomach cancer GRANDFATHER OR GRANDMOTHER FH: throat cancer GRANDFATHER OR GRANDMOTHER, Past Social History Smoking: Non-Smoker Alcohol Use: Sober Drug Use: Marijuana Lives with: Spouse Lives In: Home Occupation: employed ROS All Other Systems: Reviewed and Negative ROS Reviewed in full and negative except positive pertinent in HPI. Exam Vitals: Vital Signs Date Time Temp Pulse Resp B/P (MAP) Pulse Ox O2 Delivery O2 Flow Rate FiO2 10/26/24 01:31 18 10/26/24 01:18 59 99 0 10/25/24 23:34 99.0 General: General: Alert, no distress. Alert, awake, oriented to time place person. HEENT: No injection, moist mucous membranes. No icterus. Neck: Full range of motion. Respiratory: No respiratory distress, equal chest rise and fall. No crepitations or wheeze Chest: No accessory muscle use. Cardiovascular: Regular rate and rhythm. No murmurs /gallops /rubs Gastrointestinal: Nondistended, soft. Tender to palpation of right upper quadrant, normal bowel sounds. Extremities: Normal range of motion, no deformity. No cyanosis , clubbing and pedal edema. Bilateral dorsalis pedis artery pulsation is present Neurologic: Sensory system : touch Sensation are absent in bilateral foot up to below knee but but sensation is preserved above the knee,thigh region and bilateral upper arms. Motor system is intact. Deep tendon reflexes are 1+ on both sides. Cerebellum is intact. Could not able to test for sensory ataxia. Psychiatric: Normal mood and affect. Skin: Normal color, warm and dry Diagnostic Data Last Recorded Lab Results: [id number] Diagnostic Data: Laboratory Tests Test 10/26/24 04:09 Coagulation Comments Advance Care Planning Advanced Care planning: Add on additional 30 min Additional Plan Acute cholecystitis with cholelithiasis Vitals are stable and hemoglobin is 12.7. CMP is not impressive with normal lipase levels. On IV normal saline at the rate of 100 mL/hour On Zosyn 4.5 g IV q.8h Consulted Dr. Mercado(via telephonic message) for possible surgery and he is aware of about the patient Patient is in NPO. Numbness We considered the differential diagnosis of GBS, final ischemia, cord compression, Peripheral neuropathy secondary to vaping- possible nitric oxide inhalation Ordered vitamin B12, vitamin B6 We will start the patient on vitamin B12, folic acid, thiamine Patient may need nerve conduction studies in outpatient on neurology outpatient follow up We are evaluating with the MRI D-L spine, arterial Doppler bilateral lower legs, tele neurology consultation, A1c, lipid panel, lead levels, TSH and we will follow up with the results Hepatitis-C On mavyret We will start the medications after reconciliation Polysubstance use disorder Fentanyl use Methamphetamine marijuana use He has been cleared for the drugs-127 days On thiamine, B12, folic acid Code status: Full code Diet: NPO DVT prophylaxis: SCDs PT: Ordered Prognosis: Guarded Maritza Richards IM resident Pt was seen and discussed with the resident features of acute cholecystiotis noted - on abx and sx consulted paraparesis of unknown etiology recommended immediate MRI of the back Neurology consultation agree with orders placed for other possible causes of a neuropathy. no recent hx of vaccination need to follow closely Date of Service: Oct 26, 2024 Billing Provider: MATT BOURGEOIS MD, VENKATESH, RES Oct 26, 2024 04:40 MATT BOURGEOIS MD Oct 26, 2024 07:59
[2024-10-26 04:41] LABS: APTT 27 SECONDS (22-32); PROTHROMBIN TIME 10.3 SECONDS (9.0-12.0)
[2024-10-26] MEDS: piperacillin/tazo 4.5gm/100ml 100 ML IV SCH (04:43)
[2024-10-26 04:44] LABS: BILIRUBIN,URINE NEGATIVE (Neg); CLARITY,URINE CLEAR (Clear); COLOR,URINE YELLOW (Yellow); GLUCOSE, URINE NEGATIVE (Neg); KETONES,URINE NEGATIVE (Neg); LEUKOCYTE ESTERASE ,URINE NEGATIVE (Neg); NITRITES, URINE NEGATIVE (Neg); OCCULT BLOOD,URINE NEGATIVE (Neg); PROTEIN,URINE NEGATIVE (Neg); UROBILINOGEN,URINE 0.2 E.U/dL (0.2-1.0)
[2024-10-26] MEDS: piperacillin/tazo 4.5gm/100ml 100 ML IV ONE (04:44)
[2024-10-26] MEDS ORDERED: METH-603 PO (04:46)
[2024-10-26] MEDS ORDERED: GLEC1TAB PO (04:46)
[2024-10-26 04:51] LABS: UA COLLECTION TYPE CLN CATCH MIDSTREAM
--- NOTE | 2024-10-26 06:47 | RADIOLOGY REPORT ---
INDICATION: PAIN ABDOMEN TECHNIQUE: Multiple real-time sonographic images of the abdomen were obtained. COMPARISON: US ULTRASOUND OF ABDOMEN on DOS: 09/18/24 FINDINGS: The liver is homogenous in echogenicity. The liver measures 17.0 cm. No intrahepatic bilia ry ductal dilatation is noted. The gallbladder wall measures 0.7 cm compatible with thickening. Multiple gallstones. The common d uct measures 0.4 cm and is unremarkable. No pericholecystic fluid is noted. Negative sonographic Mur phy's sign. The right kidney measures 10.1 cm. No hydronephrosis. The pancreas is not well visualized due to obscuration from bowel gas. The visualized portions of the IVC and aorta are grossly unremarkable. IMPRESSION: 1. Gallstones. Gallbladder wall thickening. Negative sonographic steele's sign. 2. Hepatomegaly.
[2024-10-26 06:51] LABS: CHOLESTEROL 172 MG/DL (0-200); LDL CHOLESTEROL 81 MG/DL (50-100); THYROID STIMULATING HORMONE 2.14 ulU/ml (0.34-4.50); TRIGLYCERIDES 91 MG/DL (20-135)
[2024-10-26 06:57] LABS: HEMOGLOBIN A1C 5.5 % (4.5-6.2)
[2024-10-26 07:40] LABS: CHOL/HDL RATIO 2.5 (0.00-4.99); HDL CHOLESTEROL 68 MG/DL (35-60)
--- NOTE | 2024-10-26 07:57 | VASCULAR REPORT ---
BILATERAL Lower Extremity Arterial Duplex Date: 10/26/2024 06:19 AM Clinical History: Bilateral lower extremity numbness / pain. Comparison: None Technique: Duplex Doppler evaluation including color Doppler and spectral/pulsed waveform analysis of the lower extremity arteries was performed. Finding: Mild atherosclerotic plaque noted throughout the arteries. RIGHT: Peak systolic velocities are as follows: DRY END TESTER 178 cm/s Deep femoral 127 cm/s SFA proximal 136 cm/s SFA mid-portion 155 cm/s SFA distal 143 cm/s Popliteal 75 cm/s Posterior tibial 64 cm/s Anterior tibial 71 cm/s Peroneal 64 cm/s Dorsalis pedis not imaged The waveforms are triphasic. LEFT: Mild atherosclerotic plaque throughout the arteries. Peak systolic velocities are as follows: DRY END TESTER 170 cm/s Deep femoral 127 cm/s SFA proximal 146 cm/s SFA mid-portion 165 cm/s SFA distal 167 cm/s Popliteal 89 cm/s Posterior tibial 65 cm/s Anterior tibial 72 cm/s Peroneal 66 cm/s Dorsalis pedis not imaged The waveforms are triphasic. REFERENCE VALUES, [facility] ([facility]) vascular Imaging Lab Criteria: Peak systolic velocity ranges (in cm/sec) are as follows: <150 cm/s - <20 % stenosis 150-200 cm/s - 20-49% stenosis 200-300 cm/s - 50-75% stenosis >300 cm/s -> 75% stenosis IMPRESSION: 1. Top normal velocities in the bilateral common femoral arteries, however There is no evidence of hi gh-grade stenosis in the arteries of the right or left lower extremity.
[2024-10-26] MEDS: K and/or MAG REPLACEMENT MC SCH (08:00)
[2024-10-26] MEDS: folic acid 1mg/0.2ml inj IV ONE (08:09)
[2024-10-26] MEDS: thiamine 100mg/ml 2ml inj. IM SCH (08:13)
[2024-10-26] MEDS: cyanocobalamin 1,000 mcg/ml inj IM ONE (08:14)
[2024-10-26] MEDS: docusate sod 100mg capsule PO SCH (08:14)
[2024-10-26 10:00] VITALS: RESP 18; O2SAT 94
[2024-10-26 10:04] VITALS: BP 156/50; PULSE 61; RESP 12; TEMP 97.7; O2SAT 93
[2024-10-26 10:30] VITALS: BP 112/44; PULSE 50; RESP 16; TEMP 98.2; O2SAT 96
[2024-10-26] MEDS: diatr meglu/diatrizoate 30ml oral sol.-(3 dose) bottle PO SCH (14:32)
[2024-10-26] MEDS: LORazepam 2 mg/ml vial IV ONE (15:39)
--- NOTE | 2024-10-26 16:26 | PROGRESS NOTE ---
Daily Progress Note Providers to CC ~ Antibiotic Timeout Antibiotic Ordered?: Yes Subjective Patient was seen in his room earlier he was not wanting to go for MRI because it takes long and it hurts his neck and back. But then he agreed to get the MRI testing with sedation. Dr. Marshall following the patient and we will plan for surgery once things are more clear about his numbness he mentioned to me that since last 2-1/2 weeks he is falling he is taken care by his he is on hepatitis C medication for treatment. He denied any alcohol or any recreational drugs. As per patient pain needs all over his upper abdomen bilaterally. Objective Vital Signs Date Time Temp Pulse Resp B/P (MAP) Pulse Ox O2 Delivery O2 Flow Rate FiO2 10/26/24 10:19 53 10/26/24 10:04 97.7 12 156/50 (85) 93 Room Air 10/26/24 04:46 0 Result Diagram: 10/25/24210510/26/24 0409 General-patient not in any acute distress, alert awake oriented, chronically ill-appearing, age-appropriate HEENT-atraumatic normocephalic, neck supple without elevated JVD, no thyromegaly or carotid bruit. No lymphadenopathy bilaterally. Eyes-no icterus or pallor seen in eyes Chest-clear to auscultation bilaterally, breathing nonlabored no tachypnea, no wheezing, no crepitation, no crackles. Heart-S1-S2 normal, regular heart rate no murmur Abdomen - decreased bowel sounds positive on auscultation, soft nondistended , signs of discomfort on palpation over upper abdomen, no guarding, no rigidity Skin no active skin rash Neurology-grossly intact, nonfocal alert awake oriented Extremity- no pedal edema able to move upper extremities Psychiatry - patient is not confused or agitated cooperated during physical examination Coagulation Studies Laboratory Tests Test 10/26/24 04:09 Prothrombin Time 10.3 SECONDS (9.0-12.0) INR International Normalized Ratio 1.0 INR Activated Partial Thromboplast Time 27 SECONDS (22-32) Coagulation Comments Problem\Assessment\Plan Acute cholecystitis with cholelithiasis normal lipase levels. On IV normal saline at the rate of 100 mL/hour On Zosyn 4.[address] 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 Ordered vitamin B12, vitamin B6 Patient may need nerve conduction studies in outpatient on neurology outpatient follow up ordered MRI D-L spine, arterial Doppler bilateral lower legs, ordered tele neurology consultation, reviewed A1c, lipid panel, lead levels, TSH levels Hepatitis-C On mavyret ( can cause abdominal pain as a side effect) We will start the medications after reconciliation Polysubstance use disorder Fentanyl use Methamphetamine marijuana use He has been cleared for the drugs-127 days On thiamine, B12, folic acid Code status: Full code Diet: NPO DVT prophylaxis: SCDs PT: Ordered Prognosis: Guarded Patient's current condition is guarded we will continue to follow patient in a.m. Date of Service: Oct 26, 2024 Billing Provider: DUSTIN SHAH MD Common Visit Codes: [id number] INP/OBS CARE(HIGH) DUSTIN SHAH MD Oct 26, 2024 16:26
--- NOTE | 2024-10-26 17:14 | RADIOLOGY REPORT ---
PROCEDURE: MR MRI LUMBAR SPINE INDICATION: sudden numbness of both lower limbs Exam Date: 10/26/2024 04:01 PM COMPARISON: None TECHNIQUE: MRI lumbar spine without intravenous contrast. FINDINGS: The lumbar alignment is intact. The vertebral body heights and marrow signal are within normal limit s. The visualized distal spinal cord and conus medullaris are within normal limits. The conus medul juana appears to terminate within normal limits. The visualized retroperitoneal and paraspinal soft tissues are unremarkable. The following axial levels are detailed below: T12-L1: Unremarkable. L1-L2: Unremarkable. L2-L3: Unremarkable. L3-L4: Unremarkable. L4-L5: 2 mm annular disc bulge. No central canal stenosis. Moderate left-sided neural foraminal narr owing. L5-S1: 4 mm broad based annular disc bulge. Moderately severe left-sided neural foraminal narrowing, sagittal image 12, series 14.. No central canal stenosis. Disc desiccation. Small tear of the posteri or margin of the disc annulus. IMPRESSION: 1. Spondylosis most prominent the L5-S1 levels discussed above.Moderate L4-5 and moderately severe L5-S1 left-sided neural foraminal narrowing Disc desiccation L5-S1 level No acute vertebral body fracture Normal conus
--- NOTE | 2024-10-26 17:16 | RADIOLOGY REPORT ---
PROCEDURE: MR MRI THORACIC SPINE INDICATION: sudden numbness of both lower limbs Exam Date: 10/26/2024 04:01 PM COMPARISON: None TECHNIQUE: MRI thoracic spine without intravenous contrast. FINDINGS: Moderate multilevel degenerative disc disease. No acute vertebral body fracture Normal thoracic cord Motion artifact IMPRESSION: Limited exam No acute vertebral body fracture Normal alignment 1. No significant posterior disc disease, central canal or neural foraminal narrowing. 2. Intact thoracic cord signal. No evidence of cord compression.
[2024-10-26 17:20] LABS: BASOPHILS % (AUTO) 0.5 % (0-1); EOSINOPHILS # (AUTO) 0.3 X10'3 (0-0.9); EOSINOPHILS % (AUTO) 6.1 % (0-6); HEMATOCRIT 37.2 % (42.0-52.0); HEMOGLOBIN 12.2 g/dl (14.0-17.9); LYMPHOCYTES # (AUTO) 2.1 X10'3 (1.1-4.8); LYMPHOCYTES % (AUTO) 37.3 % (21-51); MEAN CORPUSCULAR HEMOGLOBIN 29.1 PG (27.0-31.0); MEAN CORPUSCULAR HGB CONC 32.8 g/dL (33.0-36.5); MEAN CORPUSCULAR VOLUME 88.8 FL (78-98); MEAN PLATELET VOLUME 7.5 FL (7.4-10.4); MONOCYTES # (AUTO) 0.4 X10'3 (0-0.9); MONOCYTES % (AUTO) 6.9 % (2-12); NEUTROPHILS # (AUTO) 2.7 X10'3 (1.8-7.7); NEUTROPHILS % (AUTO) 49.2 % (42-75); PLATELET COUNT 293 X10'3 (140-440); RED BLOOD COUNT 4.19 X10'6 (4.70-6.10); RED CELL DISTRIBUTION WIDTH 18.6 % (11.5-14.5); WHITE BLOOD COUNT 5.6 X10'3 (4.5-11.0)
[2024-10-26 17:28] LABS: CREATINE KINASE 138 U/L (39-308)
[2024-10-26 18:00] VITALS: BP 122/66; PULSE 58; RESP 16; TEMP 97.4; O2SAT 99
[2024-10-26] MEDS ORDERED: iohexol 300mg/ml 100ml inj. ONE (18:07)
--- NOTE | 2024-10-26 19:22 | RADIOLOGY REPORT ---
EXAM: CT Abdomen and Pelvis With Intravenous Contrast CLINICAL INDICATION: abdomen pain TECHNIQUE: Axial computed tomography images of the abdomen and pelvis with intravenous contrast. Th is CT exam was performed using one or more of the following dose reduction techniques: automated exp osure control, adjustment of the mA and/or kV according to patient size, and/or use of iterative alice nstruction technique. CONTRAST: COMPARISON: None FINDINGS: LUNG BASES: Unremarkable. No mass. No consolidation. MEDIASTINUM: Small esophageal hiatal hernia. ABDOMEN: LIVER: Hepatomegaly with fatty infiltration. GALLBLADDER AND BILE DUCTS: Cholelithiasis. No ductal dilation. PANCREAS: Unremarkable. No mass. No ductal dilation. SPLEEN: Unremarkable. No splenomegaly. ADRENALS: Unremarkable. No mass. KIDNEYS AND URETERS: Unremarkable. No solid mass. No hydronephrosis. STOMACH AND BOWEL: Constipation with suggestion of fecal impaction of the rectum. No obstruction. No mucosal thickening. PELVIS: APPENDIX: No findings to suggest acute appendicitis. BLADDER: Unremarkable. No mass. REPRODUCTIVE: Unremarkable as visualized. ABDOMEN and PELVIS: INTRAPERITONEAL SPACE: Unremarkable. No free air. No significant fluid collection. BONES/JOINTS: No acute fracture. No dislocation. SOFT TISSUES: Umbilical hernia containing fat. VASCULATURE: Unremarkable. No abdominal aortic aneurysm. LYMPH NODES: Unremarkable. No enlarged lymph nodes. OTHER FINDINGS: . . IMPRESSION: 1. Constipation with suggestion of fecal impaction of the rectum. 2. Small esophageal hiatal hernia. 3. Hepatomegaly with fatty infiltration. 4. Cholelithiasis. 5. Umbilical hernia containing fat.
[2024-10-26 20:00] VITALS: RESP 18
[2024-10-26] MEDS: ciprofloxacin lact 400MG/200ML 200 ML IV SCH (20:21)
[2024-10-26] MEDS: metroNIDAZOLE-Flagyl 500mg/NS 100 ML IV SCH (20:22)
[2024-10-26] MEDS ORDERED: diatr meglu/diatrizoate 30ml oral sol.-(3 dose) bottle PO SCH (21:00)
--- NOTE | 2024-10-26 21:03 | PROGRESS NOTE ---
Progress Note ID Providers to CC ~ Progress Note Progress Note: pt seen-workup pending KAREN JAMIL MD Oct 26, 2024 21:03
[2024-10-26 22:00] VITALS: BP 112/53; PULSE 58; RESP 16; TEMP 97.5; O2SAT 96
[2024-10-27 06:11] LABS: BASOPHILS % (AUTO) 0.2 % (0-1); EOSINOPHILS # (AUTO) 0.3 X10'3 (0-0.9); EOSINOPHILS % (AUTO) 4.4 % (0-6); HEMATOCRIT 38.7 % (42.0-52.0); HEMOGLOBIN 12.6 g/dl (14.0-17.9); LYMPHOCYTES # (AUTO) 1.5 X10'3 (1.1-4.8); LYMPHOCYTES % (AUTO) 25.9 % (21-51); MEAN CORPUSCULAR HGB CONC 32.5 g/dL (33.0-36.5); MEAN CORPUSCULAR VOLUME 89.2 FL (78-98); MEAN PLATELET VOLUME 7.4 FL (7.4-10.4); MONOCYTES # (AUTO) 0.3 X10'3 (0-0.9); MONOCYTES % (AUTO) 5.8 % (2-12); NEUTROPHILS # (AUTO) 3.7 X10'3 (1.8-7.7); NEUTROPHILS % (AUTO) 63.7 % (42-75); PLATELET COUNT 257 X10'3 (140-440); RED BLOOD COUNT 4.34 X10'6 (4.70-6.10); RED CELL DISTRIBUTION WIDTH 18.3 % (11.5-14.5); WHITE BLOOD COUNT 5.8 X10'3 (4.5-11.0)
[2024-10-27 06:21] LABS: ALANINE AMINOTRANSFERASE 21 U/L (12-78); ALBUMIN 3.2 G/DL (3.4-5.0); ALKALINE PHOSPHATASE 89 IU/L (46-116); ANION GAP 8 (8-16); ASPARTATE AMINO TRANSFERASE 22 U/L (10-37); BILIRUBIN,TOTAL 0.5 MG/DL (0.1-1.0); BLOOD UREA NITROGEN 12 MG/DL (7-18); BUN/CREATININE RATIO 13.5 (10.0-20.0); CALCIUM 8.4 MG/DL (8.5-10.1); CHLORIDE 107 MMOL/L (99-107); CREATININE 0.89 MG/DL (0.60-1.10); GLUCOSE 86 MG/DL (70-104); MAGNESIUM 1.9 MG/DL (1.5-2.4); POTASSIUM 4.1 MMOL/L (3.5-5.1); SODIUM 141 MMOL/L (135-145); TOTAL CARBON DIOXIDE 25.7 MMOL/L (24-32); TOTAL PROTEIN 6.5 G/DL (6.4-8.2); eCRCL 113 ML/MIN; eGFR > 90 ML/MIN
[2024-10-27 06:46] VITALS: BP 147/79; PULSE 69; RESP 18; TEMP 98.3; O2SAT 98
[2024-10-27 08:00] VITALS: RESP 18; O2SAT 98
[2024-10-27] MEDS: thiamine 100mg/ml 2ml inj. IV SCH (08:29)
[2024-10-27 10:00] VITALS: BP 127/76; PULSE 65; RESP 16; TEMP 98.9; O2SAT 97
[2024-10-27 13:13] LABS: ANTINUCLEAR ANTIBODIES Negative (Negative)
--- NOTE | 2024-10-27 13:14 | RADIOLOGY REPORT ---
Procedure: NM NM HIDA SCAN Exam Date: 10/27/2024 10:12 AM Clinical History: Possible cholecystitis Comparison Study: 10/26/2024 Nuclear Medicine Hepatobiliary Scan. Technique: Following the intravenous administration of 44 mCi of technetium 99m labeled Choletec multiple planar abdominal planar images were obtained in anterior projection in 5 minute intervals for 60 minutes . Findings: There is rapid uptake and excretion from the liver. Small bowel is seen at less than 20 minutes. Gal lbladder not visualized at 60 minutes. Impression: 1. Findings consistent with cystic duct obstruction.
--- NOTE | 2024-10-27 14:53 | PROGRESS NOTE ---
Progress Note ID Providers to CC ~ Progress Note Progress Note: hida noted/pt needs KAREN Marlow MD Oct 27, 2024 14:53
[2024-10-27] MEDS: methadone 10mg tablet PO SCH (14:55)
[2024-10-27 18:00] VITALS: BP 128/78; PULSE 70; RESP 16; TEMP 98.9; O2SAT 96
--- NOTE | 2024-10-27 18:36 | PROGRESS NOTE ---
Daily Progress Note Providers to CC ~ Antibiotic Timeout Antibiotic Ordered?: Yes Subjective Patient wanted to restart his methadone which he was taking from methadone clinic for opioid withdrawal. HIDA scan came positive in Dr. Marshall is planning to take him to OR for possible cholecystectomy in a.m. all labs and diagnostic workup discussed in visit in presence of patient's today. Patient's thoracic and lumbar MRI results discussed with neurosurgeon Dr. Lenard Coelho who is willing to review his MRI images . He is willing to follow patient in outpatient setting for abnormal MRI finding. Patient came back from HIDA scan and he was able to transfer himself without any assistance to bed. Objective Vital Signs Date Time Temp Pulse Resp B/P (MAP) Pulse Ox O2 Delivery O2 Flow Rate FiO2 10/27/24 10:00 98.9 65 16 127/76 (93) 97 Room Air 10/26/24 20:00 0.0 Result Diagram: 10/27/24 0516 10/27/24 0516 General-patient not in any acute distress, alert awake oriented, chronically ill-appearing, age-appropriate HEENT-atraumatic normocephalic, neck supple without elevated JVD, no thyromegaly or carotid bruit. No lymphadenopathy bilaterally. Eyes-no icterus or pallor seen in eyes Chest-clear to auscultation bilaterally, breathing nonlabored no tachypnea, no wheezing, no crepitation, no crackles. Heart-S1-S2 normal, regular heart rate no murmur Abdomen - decreased bowel sounds positive on auscultation, soft nondistended , signs of discomfort on palpation over upper abdomen, no guarding, no rigidity Skin no active skin rash Neurology-grossly intact, nonfocal alert awake oriented Extremity- no pedal edema able to move upper extremities Psychiatry - patient is not confused or agitated cooperated during physical examination Coagulation Studies Laboratory Tests Test 10/26/24 04:09 Prothrombin Time 10.3 SECONDS (9.0-12.0) INR International Normalized Ratio 1.0 INR Activated Partial Thromboplast Time 27 SECONDS (22-32) Coagulation Comments Problem\Assessment\Plan Acute cholecystitis with cholelithiasis normal lipase levels. On IV normal saline at the rate of 100 mL/hour On Zosyn 4.[address] Mercado is aware of about the patient With the patient NPO after midnight HIDA scan came positive in Dr. Marshall is planning to take him to OR for possible cholecystectomy in a.m. Numbness Patient may need nerve conduction studies in outpatient on neurology outpatient follow up ordered MRI D-L spine, arterial Doppler bilateral lower legs, ordered tele neurology consultation, reviewed A1c, lipid panel, lead levels, TSH levels Patient's thoracic and lumbar MRI results discussed with neurosurgeon Dr. Lenard Coelho who is willing to review his MRI images . He is willing to follow patient in outpatient setting for abnormal MRI finding. Hepatitis-C On mavyret ( can cause abdominal pain as a side effect) We will start the medications after reconciliation Polysubstance use disorder Fentanyl use Methamphetamine marijuana use He has been cleared for the drugs-127 days On thiamine, B12, folic acid Methadone started today as requested by the patient . Code status: Full code Diet: NPO DVT prophylaxis: SCDs PT: Ordered Prognosis: Guarded Patient's current condition is guarded we will continue to follow patient in a.m. Date of Service: Oct 27, 2024 Billing Provider: DUSTIN SHAH MD Common Visit Codes: [id number] INP/OBS CARE(HIGH) DUSTIN SHAH MD Oct 27, 2024 18:36
[2024-10-27] MEDS: PIBRENTASVIR PO SCH (21:21)
[2024-10-27] MEDS: GLECAPREVIR PO SCH (21:21)
[2024-10-27 22:00] VITALS: BP 120/69; PULSE 63; RESP 18; TEMP 97.9; O2SAT 97
[2024-10-27 23:00] VITALS: O2SAT 97
[2024-10-28] VITALS (16 sets, daily range): BP systolic 112–174; BP diastolic 62–108; PULSE 67–86; RESP 9–20; TEMP 97.4–98.5; O2SAT 92–99
[2024-10-28 05:00] LABS: BASOPHILS % (AUTO) 0.6 % (0-1); EOSINOPHILS # (AUTO) 0.3 X10'3 (0-0.9); EOSINOPHILS % (AUTO) 7.2 % (0-6); HEMATOCRIT 35.9 % (42.0-52.0); HEMOGLOBIN 11.9 g/dl (14.0-17.9); LYMPHOCYTES # (AUTO) 2.3 X10'3 (1.1-4.8); LYMPHOCYTES % (AUTO) 50.6 % (21-51); MEAN CORPUSCULAR HEMOGLOBIN 29.1 PG (27.0-31.0); MEAN CORPUSCULAR HGB CONC 33.1 g/dL (33.0-36.5); MEAN CORPUSCULAR VOLUME 87.9 FL (78-98); MEAN PLATELET VOLUME 7.3 FL (7.4-10.4); MONOCYTES # (AUTO) 0.5 X10'3 (0-0.9); MONOCYTES % (AUTO) 11.7 % (2-12); NEUTROPHILS # (AUTO) 1.3 X10'3 (1.8-7.7); NEUTROPHILS % (AUTO) 29.9 % (42-75); PLATELET COUNT 277 X10'3 (140-440); RED BLOOD COUNT 4.08 X10'6 (4.70-6.10); RED CELL DISTRIBUTION WIDTH 18.2 % (11.5-14.5); WHITE BLOOD COUNT 4.5 X10'3 (4.5-11.0)
[2024-10-28 05:26] LABS: ALANINE AMINOTRANSFERASE 23 U/L (12-78); ALKALINE PHOSPHATASE 90 IU/L (46-116); ANION GAP 5 (8-16); ASPARTATE AMINO TRANSFERASE 17 U/L (10-37); BILIRUBIN,TOTAL 0.3 MG/DL (0.1-1.0); BLOOD UREA NITROGEN 17 MG/DL (7-18); BUN/CREATININE RATIO 16.5 (10.0-20.0); CALCIUM 8.5 MG/DL (8.5-10.1); CHLORIDE 109 MMOL/L (99-107); CREATININE 1.03 MG/DL (0.60-1.10); GLUCOSE 93 MG/DL (70-104); MAGNESIUM 1.8 MG/DL (1.5-2.4); POTASSIUM 4.4 MMOL/L (3.5-5.1); SODIUM 144 MMOL/L (135-145); TOTAL CARBON DIOXIDE 30.5 MMOL/L (24-32); TOTAL PROTEIN 6.1 G/DL (6.4-8.2); eCRCL 97 ML/MIN; eGFR 80 ML/MIN
[2024-10-28 07:12] LABS: HBSAG SCREEN Negative (Negative); HEP B CORE AB, IGM Negative (Negative); HEP B CORE AB, TOT Negative (Negative)
--- NOTE | 2024-10-28 09:09 | PROGRESS NOTE ---
Progress Note ID Providers to CC ~ Progress Note Progress Note: discussed procedure including risks/benefits/alternatives KAREN JAMIL MD Oct 28, 2024 09:09
[2024-10-28] MEDS ORDERED: sevoflurane 250ml liquid IH ONE (09:15)
[2024-10-28] MEDS ORDERED: hydrALAZINE 20mg/ml inj. IV PRN (09:30)
[2024-10-28] MEDS ORDERED: meperidine/PF 25mg/ml syringe IV PRN (09:30)
[2024-10-28] MEDS ORDERED: morphine 2 MG/ML inj. syringe IV PRN (09:30)
[2024-10-28] MEDS ORDERED: labetalol 20mg/4ml (5mg/ml) syringe IV PRN (09:30)
[2024-10-28] MEDS ORDERED: HYDROmorphone/PF 0.2 MG/ML SYRINGE IV PRN (09:30)
[2024-10-28] MEDS ORDERED: proCHLORperazine 10 MG/2 ml inj IV PRN (09:30)
[2024-10-28] MEDS: ringers solution, lacted 1,000 ML IV SCH (09:30)
[2024-10-28] MEDS ORDERED: midazolam 1 mg/ML 2ml injection ONE (09:36)
[2024-10-28] MEDS ORDERED: fentaNYL /PF 50mcg/ml 5ml ampule ONE (09:36)
[2024-10-28] MEDS ORDERED: ceFOXitin 1000 MG inj ONE ×2 (09:45)
[2024-10-28] MEDS ORDERED: LIDOcaine 2% (20mg/ml) 5ml vial ONE (09:45)
[2024-10-28] MEDS ORDERED: propofol inj 20 ML IV ONE (09:45)
[2024-10-28] MEDS ORDERED: rocuronium 10mg/ml inj IV ONE (09:45)
[2024-10-28] MEDS ORDERED: dexamethasone sod phosphate 4mg/ml inj. ONE (09:46)
[2024-10-28] MEDS ORDERED: ondansetron/PF 4mg/2ml inj ONE (09:46)
[2024-10-28] MEDS: BUPIVAcaine 0.25% w/Epi /PF 30ml vial IJ ONE (10:08)
[2024-10-28] MEDS ORDERED: neostigmine methylsulfate 1 MG/ML 10ml vial ONE (10:51)
[2024-10-28] MEDS ORDERED: glycopyrrolate 0.2mg/ml inj ONE (10:51)
[2024-10-28] MEDS ORDERED: sugammadex 200mg/2ml injection IV ONE (10:56)
[2024-10-28] MEDS: HYDROmorphone/PF 0.2 MG/ML SYRINGE IV PRN (11:16)
--- NOTE | 2024-10-28 11:19 | OPERATIVE REPORT ---
Operative Report Providers to CC ~ Date of Procedure: Oct 28, 2024 Pre-Operative Diagnosis: cholelithiasis/? cholecystitis Post-Operative Diagnosis SAME as PRE-Op Procedure Performed rod lackey Surgeon: lulu Singer Back Tender none Anesthesiologist: Itzel Foote Type of Anesthesia: General Findings: cholelithiasis/cholecystitis Estimated Blood Loss: 50 ml Specimen Removed: KAREN Sun MD Oct 28, 2024 11:19
[2024-10-28] MEDS ORDERED: ondansetron/PF 4mg/2ml inj IV PRN (11:25)
[2024-10-28] MEDS ORDERED: naloxone 0.4 mg/ml inj IV PRN (11:25)
[2024-10-28] MEDS ORDERED: PCA WASTE DOCUMENTATION 1 MG ML MC SCH (11:25)
[2024-10-28] MEDS: morphine 4 MG/ML inj SYRINge IV PRN (11:27)
[2024-10-28] MEDS: ondansetron/PF 4mg/2ml inj IV PRN (11:30)
[2024-10-28] MEDS: LidoCAINE 2% Topical Jelly 11mL syringe (UROJET) TOP ONE (12:15)
[2024-10-28] MEDS: HYDROcodone/acetaminophen 10/325mg tab PO PRN (14:04)
--- NOTE | 2024-10-28 15:16 | OPERATIVE REPORT ---
DATE OF SURGERY: 10/28/2024 DICTATING PHYSICIAN: Didier Mercado MD PREOPERATIVE DIAGNOSES: Cholelithiasis, questionable cholecystitis. POSTOPERATIVE DIAGNOSES: Cholelithiasis, questionable cholecystitis. PROCEDURE PERFORMED: Robotic cholecystectomy. SURGEON: Didier Mercado MD ANESTHESIA: General/Dr. Foote. DRAINS: Rosalio x 1. INDICATIONS FOR OPERATION: The patient is a 39-year-old male with recurrent abdominal pain, admitted to the ER found to have cholelithiasis with cystic duct obstruction. Taken to surgery for robotic cholecystectomy. INTRAOPERATIVE FINDINGS: The patient has dense adhesions with evidence of chronic cholecystitis. DESCRIPTION OF PROCEDURE: The patient was placed supine on the operating table. After induction of general anesthesia and placement of endotracheal tube, the abdomen was prepped and draped. A subumbilical incision was then made and Ashleigh port placed using open technique and pneumoperitoneum was begun by insufflation of CO2. Additional ports were placed in left lower quadrant and right lateral abdomen. Camera port was then docked. Camera placed, camera targeted. Additional ports were then docked and instruments placed. Abdomen was then explored. The patient had extensive adhesions. The gallbladder adhesion was taken down. Cystic duct identified, isolated, ligated, clipped and divided the cystic artery. The gallbladder was then mobilized out of the gallbladder fossa. Hemostasis was found to be adequate. Robotic instruments were removed, robot undocked and removed from the field. Gallbladder was placed in Endobag using laparoscope. Abdomen was copiously irrigated with large amount of antibiotic-containing solution. When hemostasis found to be adequate, ports were removed. There was no active bleeding. Final port and camera withdrawn. Pneumoperitoneum was evacuated and the gallbladder was removed. Drain was placed through the port incision prior to removal of the ports. Wounds were then closed in layers. Skin was closed with clips. Dressing was applied. The patient was transferred to recovery in stable condition. Didier Mercado MD TID: [id number] RECEIPT: [id number] KB/MARIANNE/SHRAVAN
[2024-10-28] MEDS: GLECAPREVIR PO SCH (18:00)
[2024-10-28] MEDS: PIBRENTASVIR PO SCH (18:00)
--- NOTE | 2024-10-28 20:00 | PROGRESS NOTE ---
Daily Progress Note Providers to CC ~ Antibiotic Timeout Antibiotic Ordered?: Yes Subjective Patient was seen after his cholecystectomy. Patient was NPO pain medication ordered for pain control. Objective Vital Signs Date Time Temp Pulse Resp B/P (MAP) Pulse Ox O2 Delivery O2 Flow Rate FiO2 10/28/24 18:00 98.0 67 16 120/71 (87) 92 Room Air 10/28/24 13:30 0.0 21 Result Diagram: 10/28/2442610/28/24426 General-patient not in any acute distress, alert awake oriented, chronically ill-appearing, age-appropriate HEENT-atraumatic normocephalic, neck supple without elevated JVD, no thyromegaly or carotid bruit. No lymphadenopathy bilaterally. Eyes-no icterus or pallor seen in eyes Chest-clear to auscultation bilaterally, breathing nonlabored no tachypnea, no wheezing, no crepitation, no crackles. Heart-S1-S2 normal, regular heart rate no murmur Abdomen - no bowel sounds positive on auscultation, soft nondistended , signs of discomfort on palpation over upper abdomen, no guarding, no rigidity. Surgical dressing in place Skin no active skin rash Neurology-grossly intact, nonfocal alert awake oriented Extremity- no pedal edema able to move upper extremities Psychiatry - patient is not confused or agitated cooperated during physical examination Coagulation Studies Laboratory Tests Test 10/26/24 04:09 Prothrombin Time 10.3 SECONDS (9.0-12.0) INR International Normalized Ratio 1.0 INR Activated Partial Thromboplast Time 27 SECONDS (22-32) Coagulation Comments Problem\Assessment\Plan Acute cholecystitis with cholelithiasis normal lipase levels. On IV normal saline at the rate of 100 mL/hour On Zosyn 4.5 g IV q.8h HIDA scan came positive in Dr. Marshall , s/p cholecystectomy done today Numbness Patient may need nerve conduction studies in outpatient on neurology outpatient follow up ordered MRI D-L spine, arterial Doppler bilateral lower legs and results reviewed, ordered tele neurology consultation, reviewed A1c, lipid panel, lead levels, TSH levels Patient's thoracic and lumbar MRI results discussed with neurosurgeon Dr. Lenard Coelho who is willing to review his MRI images . He is willing to follow patient in outpatient setting for abnormal MRI finding. Hepatitis-C On mavyret ( can cause abdominal pain as a side effect) We will start the medications after reconciliation Polysubstance use disorder Fentanyl use Methamphetamine marijuana use He has been cleared for the drugs-127 days On thiamine, B12, folic acid Methadone started as requested by the patient . Code status: Full code Diet: NPO DVT prophylaxis: SCDs PT: Ordered Prognosis: Guarded Patient's current condition is guarded incoming hospitalist will continue to follow patient in a.m. Date of Service: Oct 28, 2024 Billing Provider: DUSTIN SHAH MD Common Visit Codes: [id number] INP/OBS CARE(HIGH) DUSTIN SHAH MD Oct 28, 2024 20:00
[2024-10-29] VITALS (11 sets, daily range): BP systolic 95–135; BP diastolic 52–71; PULSE 57–68; RESP 15–17; TEMP 97.2–98.6; O2SAT 92–96
--- NOTE | 2024-10-29 02:19 | CONSULTATION ---
DATE OF CONSULTATION: 10/26/2024 DICTATING PHYSICIAN: Didier Mercado MD REASON FOR CONSULTATION: Evaluation of cholelithiasis. HISTORY OF PRESENT ILLNESS: The patient is a 39-year-old male with a history of cholelithiasis and previous ER visits for the abdominal pain who presented to the ER with complaints of abdominal discomfort. The patient has known cholelithiasis. Surgical evaluation is now requested. On further questioning, the patient has some minimal right upper quadrant pain at the present time. He has had some upper and lower extremity paresthesias since his treatment was started for hepatitis C. No similar symptoms prior to initiation of that treatment. No history of peptic ulcer disease. PAST MEDICAL HISTORY: History of hepatitis C, polysubstance abuse. PAST SURGICAL HISTORY: Noncontributory. HOME MEDICATIONS: Zofran, Pepcid, and Motrin. ALLERGIES: SULFA. SOCIAL HISTORY: Polysubstance abuse. REVIEW OF SYSTEMS: See H and P. PHYSICAL EXAMINATION: GENERAL: A well-nourished male in minimal distress. VITAL SIGNS: Unremarkable. HEART: Regular rate and rhythm. LUNGS: Clear to auscultation. ABDOMEN: Shows moderate abdominal discomfort. No lloyd peritonitis. EXTREMITIES: Unremarkable. LABORATORY DATA: Include WBC of 5, hematocrit of 37, platelet count is 293. Chemistries show normal LFTs. Lipase is 27. IMAGING STUDIES: CT abdomen and pelvis: Cholelithiasis. IMPRESSION: * Symptomatic cholelithiasis. * History of hepatitis C. RECOMMENDATIONS: * Workup for history of paresthesias. * Robotic cholecystectomy at some point when cleared by Medicine. Didier Mercado MD TID: [id number] RECEIPT: [id number] GRACIA/YOK
[2024-10-29] MEDS: metroNIDAZOLE-Flagyl 500mg/NS 100 ML IV SCH (02:21)
[2024-10-29 04:53] LABS: BASOPHILS % (AUTO) 0.1 % (0-1); EOSINOPHILS % (AUTO) 0.1 % (0-6); HEMOGLOBIN 12.1 g/dl (14.0-17.9); LYMPHOCYTES # (AUTO) 1.7 X10'3 (1.1-4.8); LYMPHOCYTES % (AUTO) 26.4 % (21-51); MEAN CORPUSCULAR HEMOGLOBIN 29.3 PG (27.0-31.0); MEAN CORPUSCULAR HGB CONC 33.5 g/dL (33.0-36.5); MEAN CORPUSCULAR VOLUME 87.2 FL (78-98); MEAN PLATELET VOLUME 7.2 FL (7.4-10.4); MONOCYTES # (AUTO) 0.6 X10'3 (0-0.9); MONOCYTES % (AUTO) 9.7 % (2-12); NEUTROPHILS # (AUTO) 4.1 X10'3 (1.8-7.7); NEUTROPHILS % (AUTO) 63.7 % (42-75); PLATELET COUNT 294 X10'3 (140-440); RED BLOOD COUNT 4.12 X10'6 (4.70-6.10); RED CELL DISTRIBUTION WIDTH 17.7 % (11.5-14.5); WHITE BLOOD COUNT 6.4 X10'3 (4.5-11.0)
[2024-10-29 05:16] LABS: ALANINE AMINOTRANSFERASE 38 U/L (12-78); ALBUMIN 2.9 G/DL (3.4-5.0); ALBUMIN/GLOBULIN RATIO 1.1 (1.1-1.5); ALKALINE PHOSPHATASE 84 IU/L (46-116); ANION GAP 7 (8-16); ASPARTATE AMINO TRANSFERASE 27 U/L (10-37); BILIRUBIN,TOTAL 0.3 MG/DL (0.1-1.0); BLOOD UREA NITROGEN 10 MG/DL (7-18); BUN/CREATININE RATIO 12.5 (10.0-20.0); CALCIUM 8.3 MG/DL (8.5-10.1); CHLORIDE 109 MMOL/L (99-107); GLUCOSE 108 MG/DL (70-104); MAGNESIUM 1.7 MG/DL (1.5-2.4); POTASSIUM 4.1 MMOL/L (3.5-5.1); SODIUM 143 MMOL/L (135-145); TOTAL PROTEIN 5.6 G/DL (6.4-8.2); eCRCL 125 ML/MIN; eGFR > 90 ML/MIN
--- NOTE | 2024-10-29 16:44 | PROGRESS NOTE ---
Progress Note ID Providers to CC ~ Progress Note Progress Note: doing well/drain out in am KAREN JAMIL MD Oct 29, 2024 16:44
--- NOTE | 2024-10-29 20:48 | PROGRESS NOTE ---
Daily Progress Note Providers to CC ~ Antibiotic Timeout Antibiotic Ordered?: Yes Subjective The patient continues to experience lower extremity weakness I ordered a tele neurology consult which did not occur today there was a tele neurology consult ordered on the which has not occurred either the patient's MRIs of the thoracic and lumbar spine did not demonstrate severe spinal canal stenosis to explain the patient's lower extremity weakness Objective Vital Signs Date Time Temp Pulse Resp B/P (MAP) Pulse Ox O2 Delivery O2 Flow Rate FiO2 10/29/24 19:55 16 10/29/24 19:22 110/70 (83) 10/29/24 18:00 98.2 63 93 Room Air 10/29/24 08:00 0.0 21 Result Diagram: 10/29/24 0436 10/29/24 0436 Gen. No acute distress alert and oriented 4 Lungs clear to ascultation bilaterally, no wheezes rales or rhonchi appreciated Heart normal sinus rhythm no murmurs rubs or clicks noted Abdomen soft nontender bowel sounds are normoactive Lower extremities no clubbing cyanosis, nor edema appreciated bilaterally Coagulation Studies Laboratory Tests Test 10/26/24 04:09 Prothrombin Time 10.3 SECONDS (9.0-12.0) INR International Normalized Ratio 1.0 INR Activated Partial Thromboplast Time 27 SECONDS (22-32) Coagulation Comments Problem\Assessment\Plan Acute cholecystitis with cholelithiasis normal lipase levels. On IV normal saline at the rate of 100 mL/hour On Zosyn 4.5 g IV q.8h HIDA scan came positive in Dr. Marshall , s/p cholecystectomy done today Numbness Patient may need nerve conduction studies in outpatient on neurology outpatient follow up ordered MRI D-L spine, arterial Doppler bilateral lower legs and results reviewed, ordered tele neurology consultation, reviewed A1c, lipid panel, lead levels, TSH levels Patient's thoracic and lumbar MRI results discussed with neurosurgeon Dr. Lenard Coelho who is willing to review his MRI images . He is willing to follow patient in outpatient setting for abnormal MRI finding. 10/29 awaiting for a tele neurology consult to occur this was ordered in the and also today. Hepatitis-C On mavyret ( can cause abdominal pain as a side effect) We will start the medications after reconciliation Polysubstance use disorder Fentanyl use Methamphetamine marijuana use He has been cleared for the drugs-127 days On thiamine, B12, folic acid Methadone started as requested by the patient . Code status: Full code Diet: Clear liquids DVT prophylaxis: SCDs PT: Ordered Prognosis: Guarded Date of Service: Oct 29, 2024 Billing Provider: NANDA LOO DO Common Visit Codes: [id number] INP/OBS CARE(HIGH) NANDA LOO DO Oct 29, 2024 20:48
--- NOTE | 2024-10-29 22:43 | [facility]URO CONSULT REPORT ---
[facility] Procedure Note [facility] Procedure Note Consult [facility] Note # Demographics Consult Type: General Neurology Patient Location: Inpatient First Name: angelina Last Name: celsa Date of : 1985 Age: 39 Gender: Male Facility: [facility] Time of Initial Page ( Time): 10/29/2024 19:36 Time of Return Call ([place] Time): 10/29/2024 19:36 # HPI Chief Complaint: - numbness - weakness (generalized) History: 39 yo M was admitted abdominal pain, numbness and weakness of both arms and legs on 10/25. He was found to have acute cholecystitis s/p cholecystectomy on 10/28. He also reported progressive numbness starting in his feet, then progressed to his fingers, then thigh and upper arms over the past 3 weeks. He had difficulties with walking and multiple falls since then. No bowel/bladder incontinence or saddle anesthesia. MRI T spine unremarkable, MRI L spine with spondylosis. # Exam Mental Status: - awake - alert and oriented x 3 - follows commands Language: - normal speech - no aphasia - no dysarthria Cranial Nerves: - extra ocular movements intact - no facial droop - normal facial sensation Motor: - bilateral upper extremity weakness - left lower extremity weakness Sensory: - decreased sensation right upper extremity - decreased sensation left upper extremity - decreased sensation right lower extremity - decreased sensation left lower extremity Reflexes: Hyporeflexia throughout # ROS Additional: - complete review of systems otherwise negative # PMH-FH-SH Past Medical History: Polysubstance abuse, hep C # Data Other Imaging: MRI T spine unremarkable, MRI L spine with spondylosis. # Assessment Impression: - Given ascending paresthesia and weakness, hyporeflexia, c/f Guillain Mascot syndrome # Plan Labs: - TSH - B12 - ESR - hemoglobin A1c Imaging: (urgency: routine): - MRI Brain with AND without contrast - MRI C spine with AND without contrast Diagnostic Test: - Lumbar puncture: cell count, protein, glucose, gram stain, and culture Imaging / diagnostics: (urgency: outpatient): EMG/NCS Therapy/Evaluation: - PT/OT evaluation Medication: If LP shows albuminocytologic dissociation, start IVIG Other: - If patient has any neurological deterioration please call me back immediately - I have discussed my recommendations with the referring provider - neurology referral as outpatient # Logistics Attestation of consult completion: The patient is located at: [facility]. Facility staff participated in the visit. I performed this telemedicine visit from my offsite office utilizing interactive 2 way audio and visual telecommunication technology. Total time spent in telemedicine encounter: I spent 25 minutes reviewing clinical data and/or imaging, obtaining history, examining the patient, communicating with the onsite care team, and in preparation of this report. # Demographics First Name: angelina Last Name: celsa Facility: [facility] Electronically signed at 10/29/2024 22:42 ([place] Time) by Bren Santos MD Neuro Consult Order placed for: Yes BREN SANTOS MD Oct 29, 2024 22:43
[2024-10-30 06:00] VITALS: BP 115/60; PULSE 54; RESP 16; TEMP 98.1; O2SAT 93
[2024-10-30 06:44] LABS: BASOPHILS % (AUTO) 0.4 % (0-1); EOSINOPHILS # (AUTO) 0.2 X10'3 (0-0.9); EOSINOPHILS % (AUTO) 2.6 % (0-6); HEMATOCRIT 35.6 % (42.0-52.0); HEMOGLOBIN 11.7 g/dl (14.0-17.9); LYMPHOCYTES # (AUTO) 2.7 X10'3 (1.1-4.8); LYMPHOCYTES % (AUTO) 42.5 % (21-51); MEAN CORPUSCULAR HEMOGLOBIN 28.9 PG (27.0-31.0); MEAN CORPUSCULAR HGB CONC 32.9 g/dL (33.0-36.5); MEAN CORPUSCULAR VOLUME 87.8 FL (78-98); MEAN PLATELET VOLUME 7.4 FL (7.4-10.4); MONOCYTES # (AUTO) 0.7 X10'3 (0-0.9); MONOCYTES % (AUTO) 10.4 % (2-12); NEUTROPHILS # (AUTO) 2.8 X10'3 (1.8-7.7); NEUTROPHILS % (AUTO) 44.1 % (42-75); PLATELET COUNT 284 X10'3 (140-440); RED BLOOD COUNT 4.05 X10'6 (4.70-6.10); RED CELL DISTRIBUTION WIDTH 18.1 % (11.5-14.5); WHITE BLOOD COUNT 6.5 X10'3 (4.5-11.0)
[2024-10-30 06:51] LABS: ALANINE AMINOTRANSFERASE 37 U/L (12-78); ALBUMIN/GLOBULIN RATIO 1.1 (1.1-1.5); ALKALINE PHOSPHATASE 80 IU/L (46-116); ANION GAP 8 (8-16); ASPARTATE AMINO TRANSFERASE 21 U/L (10-37); BILIRUBIN,TOTAL 0.4 MG/DL (0.1-1.0); BLOOD UREA NITROGEN 10 MG/DL (7-18); BUN/CREATININE RATIO 12.8 (10.0-20.0); CALCIUM 8.5 MG/DL (8.5-10.1); CHLORIDE 109 MMOL/L (99-107); CREATININE 0.78 MG/DL (0.60-1.10); GLUCOSE 98 MG/DL (70-104); MAGNESIUM 1.7 MG/DL (1.5-2.4); SODIUM 145 MMOL/L (135-145); TOTAL CARBON DIOXIDE 27.9 MMOL/L (24-32); TOTAL PROTEIN 5.7 G/DL (6.4-8.2); eCRCL 129 ML/MIN; eGFR > 90 ML/MIN
[2024-10-30 10:00] VITALS: BP 120/60; PULSE 56; RESP 17; TEMP 97.6; O2SAT 93
[2024-10-30] MEDS: LORazepam 1 MG tablet PO ONE (12:32)
--- NOTE | 2024-10-30 14:29 | RADIOLOGY REPORT ---
PROCEDURE: MR MRI HEAD INDICATION: GULLIAN BARE syndrome EXAM DATE: 10/30/2024 12:53 PM COMPARISON: None TECHNIQUE: MRI of the brain without intravenous contrast. Limited, incomplete exam. No FLAIR or GRE images. FINDINGS: Limited by motion. Diffusion weighted images of the brain demonstrate no evidence of acute infarction. There is no evidence of acute intracranial hemorrhage, extra-axial collection, mass effect, midline s hift, herniation or hydrocephalus. The ventricles, sulci and cisterns appear age appropriate. No definite signal abnormality identified. The major vascular flow voids are present. The visualized paranasal sinuses and mastoid air cells are clear. The surrounding soft tissues and o sseous structures are unremarkable. IMPRESSION: 1. Limited, incomplete exam. No FLAIR or GRE images. Limited by motion. No definite acute intracrani al abnormality. Clinical correlation and continued follow-up is recommended. Consider follow-up exa m when patient is able to tolerate. HS:Y
--- NOTE | 2024-10-30 15:44 | PROGRESS NOTE ---
Progress Note ID Providers to CC ~ Progress Note Progress Note: DOING WELL/DC DRAIN KAREN JAMIL MD Oct 30, 2024 15:44
[2024-10-30] MEDS: morphine 2 MG/ML inj. syringe IV PRN (16:33)
[2024-10-30 20:00] VITALS: RESP 16; O2SAT 98
[2024-10-30 22:00] VITALS: BP 127/80; PULSE 69; RESP 16; TEMP 98; O2SAT 95
--- NOTE | 2024-10-30 22:44 | PROGRESS NOTE ---
Daily Progress Note Providers to CC ~ Antibiotic Timeout Antibiotic Ordered?: Yes Subjective removed the GIULIANO drain today- the patient is scheduled to have a lumbar puncture however he can not lay flat in his abdomen even though I did b ack to encourage him to get the lumbar puncture obtained. MRI of the head was unremarkable however there was motion artifact Objective Vital Signs Date Time Temp Pulse Resp B/P (MAP) Pulse Ox O2 Delivery O2 Flow Rate FiO2 10/30/24 20:00 16 98 Room Air 0.0 21 10/30/24 10:00 97.6 56 120/60 (80) Result Diagram: 10/30/24 0607 10/30/24 06 Gen. No acute distress alert and oriented 4 Lungs clear to ascultation bilaterally, no wheezes rales or rhonchi appreciated Heart normal sinus rhythm no murmurs rubs or clicks noted Abdomen soft nontender bowel sounds are normoactive Lower extremities no clubbing cyanosis, nor edema appreciated bilaterally Coagulation Studies Laboratory Tests Test 10/26/24 04:09 Prothrombin Time 10.3 SECONDS (9.0-12.0) INR International Normalized Ratio 1.0 INR Activated Partial Thromboplast Time 27 SECONDS (22-32) Coagulation Comments Problem\Assessment\Plan Acute cholecystitis with cholelithiasis normal lipase levels. On IV normal saline at the rate of 100 mL/hour On Zosyn 4.5 g IV q.8h HIDA scan came positive in Dr. Marshall , s/p cholecystectomy done 10/28/202410/30 GIULIANO drain was discontinued by Dr. Mercado Numbness Patient may need nerve conduction studies in outpatient on neurology outpatient follow up ordered MRI D-L spine, arterial Doppler bilateral lower legs and results reviewed, ordered tele neurology consultation, reviewed A1c, lipid panel, lead levels, TSH levels Patient's thoracic and lumbar MRI results discussed with neurosurgeon Dr. Lenard Coelho who is willing to review his MRI images . He is willing to follow patient in outpatient setting for abnormal MRI finding. 10/29 awaiting for a tele neurology consult to occur this was ordered in the and also today. 10/[address] Johnson recommended a lumbar puncture with the associated labs however the patient could not lay on his abdomen due to discomfort thus the lumbar puncture was not done I did explain to the patient and the importance of getting a lumbar puncture and I rushed over to the room since admitted interventional radiology was only going to be available until 12:30 the patient is was present when I discuss this with the the patient however lumbar puncture was not obtained the patient will go home tomorrow with a front wheel walker Hepatitis-C On mavyret ( can cause abdominal pain as a side effect) We will start the medications after reconciliation Polysubstance use disorder Fentanyl use Methamphetamine marijuana use He has been cleared for the drugs-127 days On thiamine, B12, folic acid Methadone started as requested by the patient . Code status: Full code Diet: Clear liquids DVT prophylaxis: SCDs PT: Ordered Prognosis: Guarded Disposition: Anticipate discharge home tomorrow Date of Service: Oct 30, 2024 Billing Provider: NANDA LOO DO Common Visit Codes: 25539-BXGHOVBICA INP/OBS CARE(HIGH) NANDA LOO DO Oct 30, 2024 22:44
[2024-10-31 06:00] VITALS: BP 128/68; PULSE 61; RESP 16; TEMP 98.7; O2SAT 96
[2024-10-31 06:37] LABS: BASOPHILS % (AUTO) 0.6 % (0-1); EOSINOPHILS # (AUTO) 0.3 X10'3 (0-0.9); EOSINOPHILS % (AUTO) 4.9 % (0-6); HEMATOCRIT 35.2 % (42.0-52.0); HEMOGLOBIN 11.7 g/dl (14.0-17.9); LYMPHOCYTES # (AUTO) 2.5 X10'3 (1.1-4.8); LYMPHOCYTES % (AUTO) 39.5 % (21-51); MEAN CORPUSCULAR HEMOGLOBIN 29.2 PG (27.0-31.0); MEAN CORPUSCULAR HGB CONC 33.3 g/dL (33.0-36.5); MEAN CORPUSCULAR VOLUME 87.8 FL (78-98); MEAN PLATELET VOLUME 7.3 FL (7.4-10.4); MONOCYTES # (AUTO) 0.7 X10'3 (0-0.9); MONOCYTES % (AUTO) 11.6 % (2-12); NEUTROPHILS # (AUTO) 2.7 X10'3 (1.8-7.7); NEUTROPHILS % (AUTO) 43.4 % (42-75); PLATELET COUNT 276 X10'3 (140-440); RED BLOOD COUNT 4.01 X10'6 (4.70-6.10); RED CELL DISTRIBUTION WIDTH 17.6 % (11.5-14.5); WHITE BLOOD COUNT 6.3 X10'3 (4.5-11.0)
[2024-10-31 06:58] LABS: ALANINE AMINOTRANSFERASE 30 U/L (12-78); ALBUMIN 2.9 G/DL (3.4-5.0); ALBUMIN/GLOBULIN RATIO 0.9 (1.1-1.5); ALKALINE PHOSPHATASE 79 IU/L (46-116); ANION GAP 9 (8-16); ASPARTATE AMINO TRANSFERASE 12 U/L (10-37); BILIRUBIN,TOTAL 0.3 MG/DL (0.1-1.0); BLOOD UREA NITROGEN 14 MG/DL (7-18); BUN/CREATININE RATIO 18.7 (10.0-20.0); CALCIUM 8.6 MG/DL (8.5-10.1); CHLORIDE 106 MMOL/L (99-107); CREATININE 0.75 MG/DL (0.60-1.10); GLUCOSE 93 MG/DL (70-104); POTASSIUM 4.1 MMOL/L (3.5-5.1); SODIUM 143 MMOL/L (135-145); TOTAL CARBON DIOXIDE 28.2 MMOL/L (24-32); TOTAL PROTEIN 6.2 G/DL (6.4-8.2); eCRCL 134 ML/MIN; eGFR > 90 ML/MIN
[2024-10-31 10:00] VITALS: BP 122/81; PULSE 69; RESP 16; TEMP 97.2; O2SAT 95
--- NOTE | 2024-10-31 10:54 | RADIOLOGY REPORT ---
PROCEDURE: MR MRI C SPINE Indication: GULLIAN BARE syndrome COMPARISON: None TECHNIQUE: Multiplanar multisequence images of the the cervical spine are obtained. FINDINGS: The cervical vertebral body heights are maintained. Moderate multilevel disc space narrowing and melina iccation. No abnormal marrow edema. The atlantooccipital, atlantoaxial articulations intact. There is increased T2 signal within the cervical cord from approximately level of the C2 vertebral melvin dy extending inferiorly to the level of the C6 vertebral body measuring 9.2 cm craniocaudal by 0.7 cm AP. C2-3: Small disc osteophyte complex. No spinal canal stenosis. Mild left neural foraminal stenosis. C3-4: Disc osteophyte complex narrowing the ventral and dorsal CSF spaces. Thecal sac measures 8 mm AP. Xokl-sw-abnwjlxm spinal canal stenosis. Dibb-ti-gkblanca bilateral neural foraminal stenosis sec ondary to facet and uncovertebral hypertrophy. C4-5: Disc osteophyte complex narrowing the ventral and dorsal CSF spaces. Thecal sac measures 8 mm A P. Paji-fo-vlslyvyy spinal canal stenosis. Moderate to severe left and moderate right neural forami nal stenosis secondary to facet and uncovertebral hypertrophy. C5-6: Disc osteophyte complex narrowing the ventral and dorsal CSF spaces. Thecal sac measures 8 mm AP. Lbyf-zm-hcoeswmh spinal canal stenosis. Moderate to severe bilateral neural foraminal stenosis se condary to facet and uncovertebral hypertrophy. C6-7: Small disc osteophyte complex. Thecal sac measures 9 mm AP. Mild spinal canal stenosis. Severe right and moderate to severe left neural foraminal stenosis secondary to facet and uncovertebral hyp ertrophy. C7-T1: No spinal canal stenosis. No neural foraminal stenosis. IMPRESSION: Increased T2 signal within the cervical cord extending from the level of the C2 -C7 vertebral bodies measuring 9.2 cm craniocaudal by 0.7 meters AP. Recommend MRI of the cervical spine with contrast to further evaluate. Differential considerations would include demyelinating/ dysmyelinating processes , other infectious / inflammatory etiologies, neoplastic processes. Moderate cervical degenerative disc disease. Mxvh-jm-ujosyijo spinal canal stenosis C3-4, C4-5, C5-6. Mild spinal canal stenosis at C6-7. Moderate to severe multilevel neural foraminal stenosis as described.
--- NOTE | 2024-10-31 11:16 | PROGRESS NOTE ---
Progress Note ID Providers to CC ~ Progress Note Progress Note: no surgical issues-will followup in office-call if needed KAREN JAMIL MD Oct 31, 2024 11:16
--- NOTE | 2024-10-31 14:42 | RADIOLOGY REPORT ---
PROCEDURE: MR MRI C SPINE Indication: further eval of increased T2 signal seen on non contrast MRI COMPARISON: MR MRI C SPINE on DOS: 10/31/24 TECHNIQUE: Multiplanar multisequence images of the the cervical spine are obtained with contrast. FINDINGS: In comparison to the MRI of the cervical spine from this morning, there is no evidence for abnormal c ervical cord enhancement in the region of increased T2 signal. No evidence for underlying cervical ma ss. There is no abnormal cervical marrow enhancement. IMPRESSION: No evidence for abnormal cervical cord enhancement. No cervical cord mass. No evidence for active cer vical cord demyelinating disease. Differential considerations for the increased T2 signal in the cerv ical cord include cord edema correlate cord myelomalacia, sequela of previous demyelinating disease. Given the cervical cord MRI findings on noncontrast MRI from today recommend obtaining MRI of the tho racic and lumbar spine with and without contrast.
[2024-10-31] MEDS ORDERED: GADOTERATE MEGLUMINE 7.5 MMOL/15 ML VIAL IV ONE (16:19)
[2024-10-31] MEDS ORDERED: metroNIDAZOLE 500mg tablet PO SCH (20:00)
--- NOTE | 2024-10-31 21:05 | DISCHARGE SUMMARY ---
Discharge Summary Providers to CC ~ Discharge Summary Admission Diagnosis: cholelithiasis/? cholecystitis Hospital Course DATE OF ADMISSION: 10/26/2024 DATE OF DISCHARGE: 10/31/2024 Discharge Diagnosis\\Comment: Acute cholecystitis with cholelithiasis, peripheral neuropathy, hepatitis-C, polysubstance use disorder Operations\\Procedures: Laparoscopic robotic cholecystectomy Consultants: Dr Didier Mercado general surgeon, Dr Johnson tele neurologist Complications: None Condition on DC: Stable Continued Medications: Glecaprevir/Pibrentasvir (Mavyret 100-40 mg Tablet) 100 Mg-40 Mg Tablet 3 TAB PO DAILY for 28 Days, #84 TAB 0 Refills Methadone Hcl* (Dolophine*) 10 Mg Tablet 90 MG PO DAILY, TAB Discharge Summary: The patient was admitted by resident physician MARITZA Stack ODIGWE, CHIBUZO C MD with the following HPI:"Presented to the ER with chief complaints of pain abdomen for the past one month, more on the right upper quadrant radiating to lower abdomen. Endorses vomiting for one episode, greenish black stool discoloration. Following up Dr. Mercado [place] outpatient And he recommended for hospitalization on today. Reports numbness of all four limbs for the past two and half week. She was able to walk one month ago but could not able to walk for the past 2-1/2 week. He endorses numbness and tingling sensation, initially started in bilateral hands&latter numbness progressed to bilateral legs. Denied burning sensation of the feet. Complaining of knee goes out - tripping attack for three to 4 times a day for the past couple of days. Endorses generalized weakness for the past two and half weeks. He endorses itching & constipation. Denied slurring of speech, deviation of angle of mouth, seizures, lower backache, cotton-wool sensation, blurring of vision, headache." The patient had a thoracic spine MRI which demonstrated: "1. No significant posterior disc disease, central canal or neural foraminal narrowing. 2. Intact thoracic cord signal. No evidence of cord compression." The patient also had a lumbar spine MRI which demonstrated the following findings: "1. Spondylosis most prominent the L5-S1 levels discussed above.Moderate L4-5 and moderately severe L5-S1 left-sided neural foraminal narrowing Disc desiccation L5-S1 level No acute vertebral body fracture Normal conus" Discovered the patient has coli lithiasis and cholecystitis A HIDA scan demonstrated a cystic duct obstruction. The patient went for laparoscopic robotic cholecystectomy with Dr. Mercado on 10/28/2024 The patient had unremarkable postop course in his GIULIANO drain was removed on 10/30/2024. Patient continued to have lower extremity weakness and thus I consulted tele neurology Dr. Durand who recommended a lumbar puncture with associated labs and a MRI of the head and a MRI of the cervical spine. The patient was unable to lay on his abdomen for the lumbar puncture thus workup for Guillain-Canton was not obtained if there was albuminuria in the cerebral spinal fluid then it was recommended start IVIG. MRI of the brain was unremarkable however there was artifact MRI of the cervical spine demonstrated the following findings: "Increased T2 signal within the cervical cord extending from the level of the C2 -C7 vertebral bodies measuring 9.2 cm craniocaudal by 0.7 meters AP. Recommend MRI of the cervical spine with contrast to further evaluate. Differential considerations would include demyelinating/ dysmyelinating processes, other infectious / inflammatory etiologies, neoplastic processes. Moderate cervical degenerative disc disease. Khvr-cs-gjigyvkz spinal canal stenosis C3-4, C4-5, C5-6. Mild spinal canal stenosis at C6-7. Moderate to severe multilevel neural foraminal stenosis as described." MRI of the cervical spine with IV contrast demonstrated the following findings: "No evidence for abnormal cervical cord enhancement. No cervical cord mass. No evidence for active cervical cord demyelinating disease. Differential considerations for the increased T2 signal in the cervical cord include cord edema correlate cord myelomalacia, sequela of previous demyelinating disease. Given the cervical cord MRI findings on noncontrast MRI from today recommend obtaining MRI of the thoracic and lumbar spine with and without contrast." It was elected not to stain the MRI of the thoracic and lumbar spine with IV contrast as the cervical spine MRI with IV contrast did not demonstrate to concerning findings that were found on the noncontrast cervical spine MRI. The patient felt much improved from that of admission status and is felt better than he has a long time that is the patient elected to be discharged home The patient is to follow up with Dr. Didier Mercado in two weeks The patient continues methadone for pain management Gen. No acute distress alert and oriented 4 Lungs clear to ascultation bilaterally, no wheezes rales or rhonchi appreciated Heart normal sinus rhythm no murmurs rubs or clicks noted Abdomen soft nontender bowel sounds are normoactive The patient felt ready to be discharged and was medically cleared to be di scharged on 10/31/2024 The patient was seen and evaluated on day of discharge. Time spent on discharge 40 minutes Lower extremities no clubbing cyanosis, nor edema appreciated bilaterally *Problems/Diagnosis: (1) Peripheral neuropathy Status: Acute Total Time Spent on D/C: > 30 Minutes Date of Service: Oct 31, 2024 Billing Provider: NANDA LOO DO Common Visit Codes: 44070-PYU/OBS DISCH DAY >30min NANDA LOO DO Oct 31, 2024 21:05
== END 2024-10-31 17:30 | disposition home or self-care (01) | DRG 263 ==
LOC: ER 20:21 → ED HOLD 10-26 03:07 → ORTHO 4S 10-26 09:54
PROVIDERS: ADMIT Internal Medicine; ATTEND Internal Medicine
PROC: BW211ZZ Computerized Tomography (CT Scan) of Abdomen and Pelvis using Low Osmolar Contrast (ICD-10-PCS; 2024-10-26)
PROC: CF141ZZ Planar Nuclear Medicine Imaging of Gallbladder using Technetium 99m (Tc-99m) (ICD-10-PCS; 2024-10-27)
PROC: 8E0W4CZ Robotic Assisted Procedure of Trunk Region, Percutaneous Endoscopic Approach (ICD-10-PCS; 2024-10-28)
PROC: 0FN44ZZ Release Gallbladder, Percutaneous Endoscopic Approach (ICD-10-PCS; 2024-10-28)
PROC: 0FT44ZZ Resection of Gallbladder, Percutaneous Endoscopic Approach (ICD-10-PCS; principal; 2024-10-28 09:25)
DX: K80.00 Calculus of gallbladder with acute cholecystitis without obstruction (principal); B19.20 Unspecified viral hepatitis C without hepatic coma; K66.0 Peritoneal adhesions (postprocedural) (postinfection); G62.9 Polyneuropathy, unspecified; F12.90 Cannabis use, unspecified, uncomplicated; F11.90 Opioid use, unspecified, uncomplicated; F15.90 Other stimulant use, unspecified, uncomplicated; K59.00 Constipation, unspecified; Z79.899 Other long term (current) drug therapy
CPT/HCPCS: 36415; 70551; 71045; 72141; 72142; 72146; 72148; 74177; 76700; 78226; 80053; 80061; 81003; 82550; 82607; 82948; 83036; 83605; 83655; 83690; 83735; 84132; 84145; 84443; 85008; 85025; 85610; 85651; 85730; 86038; 86140; 86704; 86705; 86885; 86900; 86901; 87040; 87081; 87340; 92508; 92616; 93925; 97116; 97161; 97530; 97535; 99285; A4215; A4314; A4618; A6449; A7000; A9537; G0378; J0665; J0694; J0744; J1100; J1171; J2003; J2060; J2250; J2270; J2405; J2543; J2704; J2710; J3010; J3411; J3420; J3490; J7030; J7120; Q9963; Q9967